=== PATIENT | male | born 1955 | race Caucasian/White ===

== ENCOUNTER 2017-05-12 08:44 | Outpatient (CLI) | payer OTHER ==
[~2017-05-12 08:44] MED LIST: Gadobenate Dimeglumine 529 MG/1 ML (20ML VIAL) ONE
--- NOTE | 2017-05-12 12:39 | RAD ---
RIGHT SHOULDER ATHROGRAM: History: 63-year-old male with right shoulder pain status post surgery with clinical concern for adhesive cap sulitis. Fluoroscopy time: 4 minutes, 78.60 mGy2. FINDINGS: Heat Plant Specialist views demonstrate removal of the distal clavicle and AC joint. Following informed consent the right shoulder was prepped and draped in usual sterile fashion. Local anesthesia was obtained with 1% Xylocaine. 22 gauge spinal needle was introduced into the anterior superior glenohumeral joint. Contrast media was injected and spot films confirm intraarticular locat ion. There was some extraarticular contrast injected resulting in a partially mixed injection. Patient tolerated the procedure well and was moved to MRI for post arthrogram MRI to follow. IMPRESSION: Post-surgical changes with removal of the distal right clavicle. Partially mixed injection. No evide nce for contrast extension into the subacromial or subdeltoid bursa as demonstrated on these limited spot films. Patient was moved to MRI for post arthrogram MRI to follow. POS: [facility]
[2017-05-12] MEDS ORDERED: EPINEPHrine 1 MG/ML AMP ONE (14:42)
[2017-05-12] MEDS ORDERED: Sodium Chloride 0.9% (PF) 10 ML VIAL ONE (14:42)
[2017-05-12] MEDS ORDERED: Lidocaine 1% PF 5 ML VIAL ONE (14:42)
[2017-05-12] MEDS ORDERED: Iopamidol 300 61% 30 ML VIAL ONE (14:42)
[2017-05-12] MEDS ORDERED: Gadobenate Dimeglumine 529 MG/1 ML (20ML VIAL) ONE (14:45)
--- NOTE | 2017-05-12 14:56 | MRI ---
RIGHT SHOULDER MRI POST RIGHT SHOULDER ARTHROGRAM: History: 63-year-old male with right shoulder pain following right shoulder surgery this summer. Technique: Multiplanar, multisequence MRI examination is performed. There is some moderate motion artifact whic h definitely lowers the sensitivity of this study. There are very extensive post-operative changes i nvolving the rotator cuff including prominent acromioplasty changes with some removal of the AC join t and distal clavicle. There is extensive metal susceptibility artifact. Multiple internal fixation anchors stabilize the greater the tuberosity. There was a partial mixed injection at the time of the shoulder arthrogram with some contrast media intending beyond the confines of the glenohumeral joint with some back filling along the course of t he needle into the subscapularis myotendinous region as well as the anterior deltoid muscle. In ailyn tion, there was some poor mixing of the gadolinium and iodinated contrast within the glenohumeral jose de jesus int as well as the subcoracoid recess. There appears to be a complete full thickness retracted tear of the supraspinatus tendon with retraction back to near the level of the humeral dome with the supr aspinatus muscle showing moderate to severe muscle volume loss. There is a partial thickness undersurface and minimally delaminating tear of the infraspinatus tendo n and probable small undersurface and delaminating tear of the subscapularis tendon. The biceps tend on has a somewhat bifid or split type appearance with some abnormal signal extending into the intera rticular portion of the biceps tendon and to the level of the biceps anchor. No acute osteochondral defect of the humerus or glenoid. Lesser tuberosity subchondral cyst. IMPRESSION: 1. Full thickness retracted tear of the supraspinatus tendon with some associated supraspinatus musc le volume loss. Partial thickness undersurface delaminating tear of the infraspinatus tendon and sub scapularis tendon. Somewhat split type or bifid type appearance of the biceps tendon in the upper bi cipital grove and intraarticularly with some abnormal high signal extending into the biceps anchor c oncerning for an interstitial biceps tendon tear extending into the biceps tendon. Extensive post-op erative changes. Lesser tuberosity subchondral cyst. POS: [facility]
== END 2017-05-12 08:45 | disposition home or self-care (01) ==
LOC: EDBD 08:44 → RAD 08:44
PROVIDERS: ATTEND Orthopaedic Surgery
DX: M75.01 Adhesive capsulitis of right shoulder (principal); Z98.890 Other specified postprocedural states
CPT/HCPCS: 23350; A9579; J0171; J2001; J7050

== ENCOUNTER 2019-05-30 08:41 | Inpatient (IN) | payer OTHER ==
[2019-05-30] MEDS ORDERED: Morphine 2 MG/ML SYRINGE ONE (08:54)
[2019-05-30] MEDS ORDERED: Aggrastat 12.5 MG/250 ML 250 ML ONE (08:58)
[2019-05-30] MEDS ORDERED: Heparin 10,000 UNITS/1 ML VIAL ONE (09:01)
[2019-05-30] MEDS ORDERED: DOPamine 400 MG/D5W 250 ML 250 ML ONE (09:14)
[2019-05-30] MEDS ORDERED: EPINEPHrine 1 MG/10 ML Abboject SYRINGE ONE (09:17)
[2019-05-30] MEDS ORDERED: EPINEPHrine 1 MG/ML AMP ONE (09:17)
[2019-05-30] MEDS ORDERED: Ondansetron PF 4 MG/2 ML Vial ONE (09:46)
[2019-05-30] MEDS ORDERED: Norepinephrine 4 MG/4 ML VIAL ONE ×2 (09:47→10:04)
[2019-05-30] MEDS ORDERED: Milk Of Magnesia 30 ML UDCUP PO PRN (11:14)
[2019-05-30] MEDS ORDERED: Zolpidem Tartrate 5 MG TAB PO PRN (11:14)
[2019-05-30] MEDS ORDERED: Acetaminophen/Codeine 30-300mg Tablet PO PRN (11:14)
[2019-05-30] MEDS ORDERED: Aggrastat 12.5 MG/250 ML 12.5 MG in Premix Bag 1 BAG IVPB SCH (11:14)
[2019-05-30] MEDS ORDERED: TICAGRELOR 90 MG TABLET PO SCH (11:14)
[2019-05-30] MEDS ORDERED: Morphine 2 MG/ML SYRINGE SLOW IVP PRN (11:18)
[2019-05-30 11:59] LABS: #Basophils 0.1 thou/uL (0.0-0.2); #Lymphocytes 1.3 thou/uL (1.20-3.40); #Monocytes 0.5 thou/uL (0.11-0.59); #Neutrophils 15.8 thou/uL (1.40-6.50); %Basophils 0.3 % (0.0-1.0); %Eosinophils 0.2 % (0.0-10.0); %Lymphocytes 7.2 % (21.0-51.0); %Monocytes 3.1 % (0.0-10.0); %Neutrophils 89.3 % (42.0-75.0); Hemoglobin 14.5 g/dL (14.0-18.0); Mean Corpuscular HGB CONC 32.8 g/dL (32.0-36.0); Mean Corpuscular Hemoglobin 32.1 pg (27.0-31.0); Mean Corpuscular Volume 98.1 fL (78.0-98.0); Mean Platelet Volume 8.2 fL (7.4-10.4); Platelet Count 166 thou/uL (130-400); Red Blood Cell (RBC) Count 4.52 mill/uL (4.70-6.10); White Blood Cell (WBC) Count 17.7 thou/uL (4.8-10.8)
--- NOTE | 2019-05-30 12:12 | CON ---
DATE OF CONSULTATION: HISTORY OF PRESENT ILLNESS: Noam Amador is a 64-year-old gentleman, who came to the ER this morning with chest pain, taken to the clinical lab assistant by Dr. Mosher. Please review Dr. Mosher' note. He had an acute anterior myocardial infarction. A bare metal stent was placed in his LAD. His blood pressure is low. He has an intra-aortic balloon pump placed at 1:1. In the ICU, he is at this stage relatively asymptomatic, pulse is 65, blood pressure is 118/47, on Levophed and intra-aortic balloon pump. The patient has known history of coronary artery disease. He states he normally seeks care at [facility]. Smokes a pack a day. No prior history of TB, pneumonia, or bronchial asthma. PAST MEDICAL HISTORY: Arthritis, mainly previous issues being addressed at the [facility]. Past medical history otherwise pertinent for hypertension. No history of diabetes. PAST SURGICAL HISTORY: Bilateral shoulder and back surgery. HOME MEDICATIONS: Apparently, has a list of the medication. ALLERGIES: NONE. 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 PHYSICAL EXAMINATION: VITAL SIGNS: Pulse 87, blood pressure 117/44, respirations 18, saturations 95%. CHEST: No wheezing or crackles. CARDIAC: Normal S1, S2. No gallop. ABDOMEN: No mass. IMPRESSION: Acute myocardial infarction, most recent cardiac cath with intra-aortic balloon pump secondary to hypertension, single bare metal stent. PLAN: Pulmonary Critical Care will follow in the ICU. Continue supportive care and PT. Baseline lab, x-ray being ordered. TIME SPENT: Consultation note, 70 minutes, 50% in direct patient care. Job ID: [id number]
[2019-05-30] MEDS: Norepinephrine 8 MG in Dextrose 5% in Water 242 ML IVPB PRN (12:16)
[2019-05-30 12:20] LABS: Troponin I 34.071 ng/mL (< 0.028)
--- NOTE | 2019-05-30 12:58 | RAD ---
PORTABLE CHEST: HISTORY: Chest pain. COMPARISON: Study from 04/01/2006. FINDINGS: Heart size is within normal limits. There is mild vascular engorgement. There are increased perihilar markings with slightly more confluent change within the right upper lobe. This could represent asymm etric edema versus infiltrate. IMPRESSION: Asymmetric right-sided perihilar and upper lobe interstitial alveolar lung change. This could represe nt an asymmetric pulmonary edema pattern versus pneumonia. A follow-up chest film would be suggested . POS: [facility]
--- NOTE | 2019-05-30 13:21 | HP ---
INDICATION FOR ADMISSION: A 64-year-old patient, who started suffering an acute anterior myocardial ST-segment elevation this morning. He was at home apparently, was getting ready for work and started to notice he had some pain. He thought when he had some chest discomfort, it was indigestion. He took some antacids, did not help, and 911 was called. He was brought to the emergency room. On the way in with the ambulance, he was noted to have an EKG and acute anterior myocardial infarction, and also he was given, I believe, morphine as well as given 4000 units of heparin. When he arrived here, he was taken immediately to the cardiac feed mill lab technician. He was still continued to have significant chest pain 8 to 05/02. He does have a history in the past of coronary artery disease. He was seen in 2005 by me, was complaining of some chest discomfort. He had a very small vessel in the distal right coronary artery, which is occluded, which was too small to intervene upon. He also had some 30% stenosis in the right coronary artery. He also had some 50% to 60% stenosis in the left anterior descending artery, but did not feel that it was necessary to undergo any intervention at that time. The circumflex was free of any significant flow-limiting disease. He believes he has not been followed up. He has been noncompliant apparently with his medications and followups. He continues to smoke. At this time, he was taken immediately to the cardiac feed mill lab technician. Very little history was obtained from the patient due to this intense pain. No family members were available. Further dictation will follow if indicated. At this time, he has suffered an anterior myocardial infarction. PAST MEDICAL HISTORY: Significant for coronary artery disease, which is documented by previous cardiac catheterization in 2005. He also has history of back surgery in 1990. He has had rotator cuff problems. SOCIAL HISTORY: He is . He had two biological children, five adopted children. He continues to smoke. At least, he has been smoking for more than 45 years. He was drinking a six pack of beer the last time he was seen. He continues to drink. 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 FAMILY HISTORY: Noncontributory. MEDICATIONS: These will need to be dictated later. I am unclear of what medicines he was supposed to be taking. REVIEW OF SYSTEMS: Also, he mainly just complained about his onset of the pain today. PHYSICAL EXAMINATION: GENERAL: Revealed a well-developed, well-nourished gentleman. He is in significant distress. VITAL SIGNS: The blood pressure is in the 80s to 90s systolically. HEENT: Unremarkable. CHEST: Clear anteriorly. CARDIOVASCULAR: Revealed a regular rate and rhythm with occasional ectopy. ABDOMEN: Unremarkable. EXTREMITIES: Showed no clubbing or cyanosis. Pedal pulses are difficult to palpate, but femoral pulses are present. NEUROLOGICAL: Neurologically, he appeared to be grossly intact. IMAGING STUDIES: EKG showed an acute anterior myocardial infarction. LABORATORY DATA: Still pending. The patient was taken emergently to the cardiac feed mill lab technician. Further dictation will follow based on the outcomes of the patient. Job ID: [id number]
--- NOTE | 2019-05-30 13:59 | CON ---
DATE OF CONSULTATION: REASON FOR ADMISSION: Anterior wall STEMI. HISTORY OF PRESENTING ILLNESS: The patient gives history of being at work and feeling very hot. He took his shirt and his hat off, but still he was feeling hot. Then he started to feel numb in his fingertips and developed retrosternal chest pain. This happened around 7:30 in the morning. He drove home and took a tablet of aspirin and a heartburn pill. He laid down for a few minutes, but could not get up after that. The finally called EMS around 10 a.m. and he was brought here. The patient's initial EKG showed ST elevation CA in the anterior wall and was taken to cardiac catheterization and has had stent placed to LAD. Currently, does not complain of any chest pain or shortness of breath. He has no complaints of cough or expectoration at present. PAST MEDICAL AND SURGICAL HISTORY: The patient mentions that he has had prior history of CA with no intervention done. History of CVA with left hemiparesis completely resolved with the patient doing a lot of physical therapy at home. There is no residual weakness at present, dyslipidemia, history of benign prostatic hypertrophy, back surgery, bilateral shoulder surgery, right reverse shoulder arthroplasty. CURRENT MEDICATIONS: 1. Flomax 0.4 mg p.o. daily. 2. Finasteride 5 mg p.o. daily. 3. Aspirin 81 mg daily. 4. Multivitamin one tablet once daily. ALLERGIES: NO KNOWN DRUG ALLERGIES. PERSONAL HISTORY: Smokes 1 pack a day. Drinks on social occasions. Does not abuse drugs. 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 Lives with his . FAMILY HISTORY: Mother in her 80s from natural causes. Father is living and has history of bladder cancer. REVIEW OF SYSTEMS: CONSTITUTIONAL: Negative for weight loss or gain, ability to conduct usual activities. SKIN: Negative for rash, itching. EYES: Negative for double vision, pain. ENT/MOUTH: Negative for nose bleeding, neck stiffness, pain, tenderness. CARDIOVASCULAR: Negative for palpitations, dyspnea on exertion, orthopnea. RESPIRATORY: Negative for shortness of breath, wheezing, cough, hemoptysis, fever or night sweats. GASTROINTESTINAL: Negative for poor appetite, abdominal pain, heartburn, nausea , vomiting, constipation, or diarrhea. GENITOURINARY: Negative for urgency, frequency, dysuria, nocturia. MUSCULOSKELETAL: Negative for pain, swelling. NEUROLOGIC/PSYCHIATRIC: Negative for anxiety, depression. ALLERGY/IMMUNOLOGIC: Negative for skin rash, bleeding tendency. CODE STATUS: Full. Power of corporate associate attorney is his . PHYSICAL EXAMINATION: GENERAL: The patient is a 64-year-old male, who is currently not in any acute distress. VITAL SIGNS: Blood pressure 110/60, art line shows systolic pressures of 90, pulse 74 per minute, respiratory rate 20 per minute, saturating 95% on 2 L nasal cannula, temperature is 97.1 degrees Fahrenheit. NECK: Supple. No elevated JVD. HEENT: Eyes; extraocular muscles intact. Pupils reacting to light. Oral cavity, mucous membranes are dry. No exudates or congestion. CARDIOVASCULAR SYSTEM: S1 and S2 heard. Murmur plus likely due to IABP. RESPIRATORY SYSTEM: Air entry 1+ bilateral. Scattered rales plus in the infra-axillary area. ABDOMEN: Soft, bowel sounds heard. No tenderness, rigidity, or guarding. EXTREMITIES: The patient has left femoral IABP catheter. Peripheral pulses are 1+ bilateral. No ischemic ulcerations or gangrene. CENTRAL NERVOUS SYSTEM: No gross focal deficits noted. The patient is alert, awake, and oriented well. PSYCHIATRIC SYSTEM: The patient's mood is euthymic. No hallucinations or delusions. LABORATORY DATA: EKG done shows anterior wall ST-elevation CA. White count of 17, hemoglobin and hematocrit of 14 and 44, platelet count 166 with 89% neutrophils. Troponin I is 34.07. CLINICAL IMPRESSION AND PLAN: The patient has had cardiac catheterization done for anterior wall STEMI with bare metal stent placed to LAD. He had subtotal occlusion of the same. Mid RCA had 50% to 60%. His current systolic blood pressure on IABP with art line is maintaining a MAP of around 70. He is on a small dose of Coreg , Lipitor, tirofiban drip, normal saline at 70 mL per hour. The patient received 180 mg of Brilinta around 1 p.m. and will start 90 b.i.d. from evening. Morphine p.r.n. for pain. Low dose of lisinopril. Echo with 2D Doppler for LV function and will closely follow up. He is currently on clear liquid diet, likely will be advanced to solid diet once he is off IABP. Levophed drip is on standby if he were to drop his pressure. He likely needs 1 or 2 doses of diuretics when his blood pressure stabilizes. Job ID: [id number] MTDD
[2019-05-30] MEDS ORDERED: Iopamidol 370 76% 100 ML VIAL ONE (14:35)
[2019-05-30] MEDS ORDERED: Iopamidol 370 76% 50 ML VIAL FS ONE (14:35)
[2019-05-30 15:17] LABS: ALT (SGPT) 40 U/L (8-55); AST (SGOT) 147 U/L (5-34); Albumin 3.4 g/dL (3.4-4.8); Alkaline Phosphatase 71 U/L (40-110); Anion Gap 14 mmol/L (10-20); BUN (Urea Nitrogen) 14 mg/dL (8.4-25.7); Bilirubin, Total 0.5 mg/dL (0.2-1.2); Calc. Creatinine Clearance 107 mL/min (70-130); Calcium 7.7 mg/dL (7.8-10.44); Carbon Dioxide 19 mmol/L (23-31); Chloride 108 mmol/L (98-107); Estimated GFR-MDRD Greater than 90; Globulin 2.8 g/dL (2.4-3.5); Glucose 158 mg/dL (80-115); Protein, Total 6.2 g/dL (5.8-8.1); Sodium 137 mmol/L (136-145)
[2019-05-30 19:01] LABS: CKMB 538.7 ng/mL (0-6.6)
[2019-05-30] MEDS: Atorvastatin Calcium 40 MG TAB PO SCH (20:07)
[2019-05-30] MEDS: Carvedilol 3.125 MG TAB PO SCH (20:10)
[2019-05-30] MEDS: TICAGRELOR 90 MG TABLET PO SCH (20:15)
[2019-05-30] MEDS: Acetaminophen/Codeine 30-300mg Tablet PO PRN (20:16)
[2019-05-30] MEDS: Morphine 4 MG/ML VIAL SLOW IVP PRN (20:52)
[2019-05-31 00:47] LABS: Critical Call Chem Troponin I RESULT DECREASING
[2019-05-31] MEDS: Acetaminophen/Codeine 30-300mg Tablet PO PRN ×2 (00:53→17:34)
[2019-05-31 01:13] LABS: CKMB 256.5 ng/mL (0-6.6); Critical Call CKMB RESULT DECREASING
[2019-05-31] MEDS: Norepinephrine 8 MG in Dextrose 5% in Water 242 ML IVPB PRN ×2 (01:40→21:55)
[2019-05-31] MEDS: Morphine 4 MG/ML VIAL SLOW IVP PRN ×2 (02:34→07:56)
[2019-05-31 05:43] LABS: #Basophils 0.1 thou/uL (0.0-0.2); #Lymphocytes 3.1 thou/uL (1.20-3.40); #Monocytes 1.3 thou/uL (0.11-0.59); #Neutrophils 9.4 thou/uL (1.40-6.50); %Basophils 0.5 % (0.0-1.0); %Eosinophils 0.3 % (0.0-10.0); %Lymphocytes 22.5 % (21.0-51.0); %Monocytes 9.4 % (0.0-10.0); %Neutrophils 67.3 % (42.0-75.0); Hemoglobin 12.6 g/dL (14.0-18.0); Mean Corpuscular HGB CONC 34.5 g/dL (32.0-36.0); Mean Corpuscular Hemoglobin 33.6 pg (27.0-31.0); Mean Corpuscular Volume 97.2 fL (78.0-98.0); Mean Platelet Volume 7.7 fL (7.4-10.4); Platelet Count 179 thou/uL (130-400); Red Blood Cell (RBC) Count 3.76 mill/uL (4.70-6.10); White Blood Cell (WBC) Count 13.9 thou/uL (4.8-10.8)
[2019-05-31 06:05] LABS: ALT (SGPT) 62 U/L (8-55); AST (SGOT) 205 U/L (5-34); Albumin 3.1 g/dL (3.4-4.8); Alkaline Phosphatase 60 U/L (40-110); Anion Gap 11 mmol/L (10-20); BUN (Urea Nitrogen) 9 mg/dL (8.4-25.7); Bilirubin, Total 0.9 mg/dL (0.2-1.2); Calc. Creatinine Clearance 109 mL/min (70-130); Calcium 8.1 mg/dL (7.8-10.44); Carbon Dioxide 22 mmol/L (23-31); Cardiac Risk 4.8 (Less than 4.5); Chloride 107 mmol/L (98-107); Cholesterol 135 mg/dl (< 200 Desired); Estimated GFR-MDRD Greater than 90; Globulin 2.5 g/dL (2.4-3.5); Glucose 134 mg/dL (80-115); HDL Cholesterol 28 mg/dL (>60 Neg Risk); LDL Cholesterol, Calculated 92 mg/dL; Potassium 3.6 mmol/L (3.5-5.1); Protein, Total 5.6 g/dL (5.8-8.1); Sodium 136 mmol/L (136-145); Triglycerides 76 mg/dL (Less than 150)
--- NOTE | 2019-05-31 07:57 | RAD ---
ONE VIEW CHEST: COMPARISON: 05/30/2019. HISTORY: IADP placement. FINDINGS: Stable density projects over the aortic knob. Stable cardiac silhouette. Persistent interstitial and alveolar opacities in the right lung. Stable interstitial opacities in t he left lung. No pleural effusion or pneumothorax. Right shoulder prosthesis is once again demonstr ated. IMPRESSION: No significant interval change. POS: [facility]
--- NOTE | 2019-05-31 08:41 | PDOC.HOSPP ---
- Subjective Encounter Date: 05/31/19 Encounter Time: 08:36 Subjective: chronic back pain aggravated by strict bed rest - Objective Vital Signs & Weight: Vital Signs (12 hours) Temp Pulse Ox 05/31/19 08:00 97.9 F 95 05/31/19 06:45 96 05/31/19 04:00 98.6 F 05/31/19 03:58 98 05/31/19 00:00 98.7 F 96 Weight Weight 179 lb 3.773 oz Most Recent Monitor Data Heart Rate from ECG 69 NIBP 87/48 NIBP BP-Mean 61 Respiration from ECG 12 SpO2 93 I&O: 05/30/19 05/31/19 06/01/19 06:59 06:59 06:59 Intake Total 1724.3 Output Total 1565 205 Balance 159.3 -205 Result Diagrams: 05/31/19 05:19 05/31/19 05:19 Hospitalist ROS - Medication Medications: Active Medications Generic Name Dose Route Start Last Admin Trade Name Freq PRN Reason Stop Dose Admin Acetaminophen/Codeine Phosphate 2 tab 05/30/19 11:14 05/31/19 00:53 Tylenol #3 PO 2 tab Q4H PRN Administration PAIN (4-6) Atorvastatin Calcium 40 mg 05/30/19 21:00 05/30/19 20:07 Lipitor PO 40 mg HS SHARIF Administration Carvedilol 3.125 mg 05/30/19 21:00 05/30/19 20:10 Coreg PO Not Given BID SHARIF Norepinephrine Bitartrate 8 mg 250 mls @ 0 mls/hr 05/30/19 10:48 05/31/19 01: 40 / Dextrose/Water IVPB 250 mls INF PRN Administration TO MAINTAIN MAP > 65 Protocol As Directed Tirofiban/Sodium Chloride 12.5 250 mls @ 0 mls/hr 05/30/19 11:14 05/30/19 12: 17 mg/ Device IVPB 250 mls INF SHARIF Administration As Directed Morphine Sulfate 4 mg 05/30/19 11:14 05/31/19 07:56 Morphine SLOW IVP 4 mg Q4H PRN Administration Chest Pain (7-10) Morphine Sulfate 2 mg 05/30/19 11:18 05/30/19 14:39 Morphine SLOW IVP 2 mg Q4H PRN Administration CHEST PAIN (4-6) Sodium Chloride 10 ml 05/30/19 21:00 05/30/19 20:15 Flush - Normal Saline IVF 10 ml Q12HR SHARIF Administration Ticagrelor 90 mg 05/30/19 21:00 05/30/19 20:15 Brilinta PO 90 mg BID SHARIF Administration - Exam Neck: no JVD Heart: RRR Heart - other findings: to\fro murmur of baloon pump Respiratory: CTAB Gastrointestinal: soft, normal bowel sounds Extremities: no edema Hosp A/P (1) ST elevation (STEMI) myocardial infarction involving left anterior descending coronary artery Code(s): I21.02 - STEMI INVOLVING LEFT ANTERIOR DESCENDING CORONARY ARTERY Status: Acute (2) CAD (coronary artery disease) Code(s): I25.10 - ATHSCL HEART DISEASE OF [place] CORONARY ARTERY W/O ANG PCTRS Status: Acute Qualifiers: Coronary Disease-Associated Artery/Lesion type: [place] artery [place] vs. transplanted heart: [place] heart Associated angina: angina presence unspecified Qualified Code(s): I25.10 - Atherosclerotic heart disease of [place] coronary artery without angina pectoris (3) Cardiomyopathy, ischemic Code(s): I25.5 - ISCHEMIC CARDIOMYOPATHY Status: Acute (4) Hypotension after procedure Code(s): I95.81 - POSTPROCEDURAL HYPOTENSION Status: Acute - Plan on baloon pump on iv levofed on brilinta bleeding at femoral puncture sites discussed with cardiology
--- NOTE | 2019-05-31 09:45 | PRG ---
DATE OF SERVICE: 05/31/2019 SUBJECTIVE: This morning, he is awake, alert, and responsive. Still on an intra-aortic balloon pump. OBJECTIVE: VITAL SIGNS: Blood pressure is 90/40, temperature is 97, saturations are 90%, respirations are 18. His I's and O's have been consistently negative. GENERAL: He is complaining of back pain. CHEST: Decreased breath sounds. No wheezing. CARDIAC: Normal S1 and S2. No gallops. ABDOMEN: No masses. LABORATORY DATA: Troponin is elevated at . IMAGING STUDIES: X-ray shows CHF. ASSESSMENT: 1. Status post acute myocardial infarction. 2. . 3. Intra-aortic balloon pump. 4. Congestive heart failure. 5. Back pain. PLAN: Pulmonary will follow while in the ICU. Continue supportive care, PT. Job ID: [id number]
[2019-05-31] MEDS ORDERED: Lidocaine 1% (PF) 30 ML VIAL ONE (10:08)
[2019-05-31] MEDS: Ondansetron ODT 4 MG TAB PO PRN (10:59)
[2019-05-31] MEDS: Aspirin 81 mg Enteric Coated Tablet PO SCH (10:59)
[2019-05-31] MEDS: TICAGRELOR 90 MG TABLET PO SCH ×2 (11:00→21:54)
[2019-05-31] MEDS: Carvedilol 3.125 MG TAB PO SCH ×2 (11:00→20:48)
[2019-05-31] MEDS: Finasteride 5 MG TAB PO SCH (11:00)
[2019-05-31] MEDS: Lisinopril 2.5 MG TAB PO SCH (11:05)
--- NOTE | 2019-05-31 13:27 | PDOC.CPN ---
- Subjective Date: 05/31/19 Time: 08:30 Interval history: The Pt seen and examined. No overnight events. No cardiac complaints. - Objective Allergies/Adverse Reactions: Allergies Allergy/AdvReac Type Severity Reaction Status Date / Time No Known Allergies Allergy Unverified 05/30/19 10:50 Visit Medications: Current Medications Acetaminophen/Codeine Phosphate (Tylenol #3) 1 tab PO Q4H PRN PRN Reason: PAIN (1-3) Acetaminophen/Codeine Phosphate (Tylenol #3) 2 tab PO Q4H PRN PRN Reason: PAIN (4-6) Last Admin: 05/31/19 00:53 Dose: 2 tab Aspirin (Ecotrin) 81 mg PO DAILY [facility] Last Admin: 05/31/19 10:59 Dose: 81 mg Atorvastatin Calcium (Lipitor) 40 mg PO HS [facility] Last Admin: 05/30/19 20:07 Dose: 40 mg Carvedilol (Coreg) 3.125 mg PO BID [facility] Last Admin: 05/31/19 11:00 Dose: Not Given Cyclobenzaprine HCl (Flexeril) 10 mg PO TID PRN PRN Reason: Muscle Spasm Finasteride (Proscar) 5 mg PO DAILY [facility] Last Admin: 05/31/19 11:00 Dose: 5 mg Norepinephrine Bitartrate 8 mg (/ Dextrose/Water) 250 mls @ 0 mls/hr IVPB INF PRN; Protocol PRN Reason: TO MAINTAIN MAP > 65 Last Admin: 05/31/19 01:40 Dose: 250 mls Tirofiban/Sodium Chloride 12.5 (mg/ Device) 250 mls @ 0 mls/hr IVPB INF [facility] Last Admin: 05/30/19 12:17 Dose: 250 mls Lisinopril (Zestril) 2.5 mg PO DAILY [facility] Last Admin: 05/31/19 11:05 Dose: Not Given Magnesium Hydroxide (Milk Of Magnesium) 30 ml PO Q12H PRN PRN Reason: Constipation Morphine Sulfate (Morphine) 4 mg SLOW IVP Q4H PRN PRN Reason: Chest Pain (7-10) Last Admin: 05/31/19 07:56 Dose: 4 mg Morphine Sulfate (Morphine) 2 mg SLOW IVP Q4H PRN PRN Reason: CHEST PAIN (4-6) Last Admin: 05/30/19 14:39 Dose: 2 mg Ondansetron HCl (Zofran Odt) 4 mg PO Q6H PRN PRN Reason: Nausea/Vomiting Last Admin: 05/31/19 10:59 Dose: 4 mg Sodium Chloride (Flush - Normal Saline) 10 ml IVF PRN PRN PRN Reason: Saline Flush Sodium Chloride (Flush - Normal Saline) 10 ml IVF Q12HR [facility] Last Admin: 05/31/19 11:00 Dose: 10 ml Ticagrelor (Brilinta) 90 mg PO BID [facility] Last Admin: 05/31/19 11:00 Dose: 90 mg Zolpidem Tartrate (Ambien) 5 mg PO HS PRN PRN Reason: Insomnia Vital Signs & Weight: Vital Signs Temp Pulse Pulse Ox 05/31/19 11:05 80 05/31/19 08:00 97.9 F 95 05/31/19 06:45 96 05/31/19 04:00 98.6 F 05/31/19 03:58 98 Weight 179 lb 3.773 oz - Physical Exam General: alert & oriented x3 Neck: supple neck Cardiac: regular rate and rhythm, S1/S2 Lungs: decreased breath sounds Extremities: no cyanosis Skin: clear Musculoskeletal: decreased range of motion - Labs Result Diagrams: 05/31/19 05:19 05/31/19 05:19 Troponin/CKMB CK-MB (CK-2) 256.5 ng/mL (0-6.6) H* 05/30/19 23:50 Troponin I 140.033 ng/mL (< 0.028) H* 05/30/19 23:50 - Telemetry Sinus rhythms and dysrhythmias: sinus rhythm - Assessment/Plan Assessment/Plan: 1. CAD with s/p PCI with BMS in prox LAD,large anterior TN. 50% stenosis in mid RCA - with IABP; On BBlocker, SHENG, Statin, ASA, and Brilinta; oozing from IABP and central line site. 2. Acute on Chronic Systolic HF with EF 25-30% - on IABP; On BBlocker and SHENG; 3. Ischemic CMY 4. Hx of CVA 5. HLD - On Statin 6. Elevated LFT 7. ETOH and Tobacco abuse - strongly recommend MICHOACANO and Tobacco cessation. 8. Hypotension - on Levophed and IABP. MAR reviewed Pt. seen and eval. by me. i agree with the A/P by the GROUP PROGRAM MANAGER. unable to wean from the levophed and the aortic balloon pump yet. He complains of back pain but no chest pain. Continue aggressive care.
[2019-05-31] MEDS: Cyclobenzaprine 10 MG TAB PO PRN (17:34)
[2019-05-31] MEDS: Atorvastatin Calcium 40 MG TAB PO SCH (21:53)
[2019-06-01] MEDS: Acetaminophen/Codeine 30-300mg Tablet PO PRN ×4 (01:15→18:04)
[2019-06-01] MEDS: Cyclobenzaprine 10 MG TAB PO PRN ×3 (01:50→21:05)
[2019-06-01 09:24] LABS: Anion Gap 9 mmol/L (10-20); BUN (Urea Nitrogen) 6 mg/dL (8.4-25.7); Calc. Creatinine Clearance 119 mL/min (70-130); Calcium 8.1 mg/dL (7.8-10.44); Carbon Dioxide 25 mmol/L (23-31); Chloride 106 mmol/L (98-107); Estimated GFR-MDRD Greater than 90; Glucose 124 mg/dL (80-115); Potassium 3.6 mmol/L (3.5-5.1); Sodium 136 mmol/L (136-145)
[2019-06-01] MEDS: Aspirin 81 mg Enteric Coated Tablet PO SCH (09:26)
[2019-06-01] MEDS: Lisinopril 2.5 MG TAB PO SCH (09:26)
[2019-06-01] MEDS: Finasteride 5 MG TAB PO SCH (09:26)
[2019-06-01] MEDS: TICAGRELOR 90 MG TABLET PO SCH ×2 (09:27→21:05)
--- NOTE | 2019-06-01 09:29 | PRG ---
DATE OF SERVICE: 06/01/2019 SUBJECTIVE: This morning, he is awake, responsive. His balloon pump is being decreased 1:3. Denies any pain. No shortness of breath. OBJECTIVE: VITAL SIGNS: Blood pressure is 95/51, saturations are 99%, and respirations 18. CHEST: No wheezing or crackles. CARDIAC: Normal S1 and S2. No gallops. ABDOMEN: No masses. ASSESSMENT: 1. Cardiomyopathy. 2. Congestive heart failure. PLAN: Continue pressors per Cardiology. Pulmonary will follow while in the ICU. Job ID: [id number]
[2019-06-01] MEDS: Enoxaparin Sodium 30 MG/0.3 ML SYRINGE SC SCH ×2 (10:00→21:05)
[2019-06-01] MEDS: Carvedilol 3.125 MG TAB PO SCH ×2 (11:13→21:06)
--- NOTE | 2019-06-01 11:27 | PDOC.HOSPP ---
- Subjective Encounter Date: 06/01/19 Encounter Time: 11:26 Subjective: no chest pain or sob - Objective Vital Signs & Weight: Vital Signs (12 hours) Temp Pulse Ox 06/01/19 11:00 98.1 F 06/01/19 07:07 96 06/01/19 07:00 98.2 F 06/01/19 05:00 98.8 F Weight Weight 179 lb 3.773 oz Most Recent Monitor Data Heart Rate from ECG 75 NIBP 94/59 NIBP BP-Mean 70 Respiration from ECG 24 SpO2 96 I&O: 05/31/19 06/01/19 06/02/19 06:59 06:59 06:59 Intake Total 1724.3 1393 360 Output Total 1565 2920 675 Balance 159.3 -1527 -315 Result Diagrams: 05/31/19 05:19 06/01/19 08:51 Hospitalist ROS - Medication Medications: Active Medications Generic Name Dose Route Start Last Admin Trade Name Freq PRN Reason Stop Dose Admin Acetaminophen/Codeine Phosphate 2 tab 05/30/19 11:14 06/01/19 06:25 Tylenol #3 PO 2 tab Q4H PRN Administration PAIN (4-6) Aspirin 81 mg 05/31/19 09:00 06/01/19 09:26 Ecotrin PO 81 mg DAILY SHARIF Administration Atorvastatin Calcium 40 mg 05/30/19 21:00 05/31/19 21:53 Lipitor PO 40 mg HS SHARIF Administration Carvedilol 3.125 mg 05/30/19 21:00 06/01/19 11:13 Coreg PO Not Given BID SHARIF Cyclobenzaprine HCl 10 mg 05/31/19 08:35 06/01/19 09:26 Flexeril PO 10 mg TID PRN Administration Muscle Spasm Enoxaparin Sodium 30 mg 06/01/19 09:00 06/01/19 10:00 Lovenox SC 30 mg 0900,2100 SHARIF Administration Finasteride 5 mg 05/31/19 09:00 06/01/19 09:26 Proscar PO 5 mg DAILY SHARIF Administration Norepinephrine Bitartrate 8 mg 250 mls @ 0 mls/hr 05/30/19 10:48 05/31/19 21: 55 / Dextrose/Water IVPB 250 mls INF PRN Administration TO MAINTAIN MAP > 65 Protocol As Directed Lisinopril 2.5 mg 05/31/19 09:00 06/01/19 09:26 Zestril PO 2.5 mg DAILY SHARIF Administration Morphine Sulfate 4 mg 05/30/19 11:14 05/31/19 07:56 Morphine SLOW IVP 4 mg Q4H PRN Administration Chest Pain (7-10) Morphine Sulfate 2 mg 05/30/19 11:18 05/30/19 14:39 Morphine SLOW IVP 2 mg Q4H PRN Administration CHEST PAIN (4-6) Ondansetron HCl 4 mg 05/31/19 09:42 05/31/19 10:59 Zofran Odt PO 4 mg Q6H PRN Administration Nausea/Vomiting Sodium Chloride 10 ml 05/30/19 21:00 06/01/19 09:27 Flush - Normal Saline IVF 10 ml Q12HR SHARIF Administration Ticagrelor 90 mg 05/30/19 21:00 06/01/19 09:27 Brilinta PO 90 mg BID SHARIF Administration - Exam General Appearance: awake alert Neck: no JVD Heart: RRR, no murmur Respiratory: CTAB Gastrointestinal: soft, normal bowel sounds Extremities: no edema Hosp A/P (1) ST elevation (STEMI) myocardial infarction involving left anterior descending coronary artery Code(s): I21.02 - STEMI INVOLVING LEFT ANTERIOR DESCENDING CORONARY ARTERY Status: Acute (2) CAD (coronary artery disease) Code(s): I25.10 - ATHSCL HEART DISEASE OF [place] CORONARY ARTERY W/O ANG PCTRS Status: Acute Qualifiers: Coronary Disease-Associated Artery/Lesion type: [place] artery [place] vs. transplanted heart: [place] heart Associated angina: angina presence unspecified Qualified Code(s): I25.10 - Atherosclerotic heart disease of [place] coronary artery without angina pectoris (3) Cardiomyopathy, ischemic Code(s): I25.5 - ISCHEMIC CARDIOMYOPATHY Status: Acute (4) Hypotension after procedure Code(s): I95.81 - POSTPROCEDURAL HYPOTENSION Status: Acute - Plan on baloon pump on iv levofed for BP support on brilinta discussed with cardiology
[2019-06-01] MEDS: Atorvastatin Calcium 40 MG TAB PO SCH (21:05)
--- NOTE | 2019-06-01 23:13 | EKG ---
Test Reason : S/P CATH Blood Pressure : / mmHG Vent. Rate : 085 BPM Atrial Rate : 085 BPM P-R Int : 150 ms QRS Dur : 084 ms QT Int : 356 ms P-R-T Axes : 066 099 067 degrees QTc Int : 423 ms Normal sinus rhythm Anterolateral infarct , age undetermined Abnormal ECG When compared with ECG of 02-APR-2006 10:18, QRS voltage has decreased Anterior infarct is now Present Anterolateral infarct is now Present ST no longer elevated in Inferior leads ST elevation now present in Anterior leads Confirmed by Sena SIMON ([id number]) on 06/01/2019 11:13:19 PM Referred By: AURORA Confirmed By:Sena SIMON
[2019-06-02 04:48] LABS: ALT (SGPT) 29 U/L (8-55); AST (SGOT) 47 U/L (5-34); Alkaline Phosphatase 61 U/L (40-110); Bilirubin, Direct 0.5 mg/dL (0.1-0.3); Bilirubin, Total 1.1 mg/dL (0.2-1.2); Protein, Total 5.8 g/dL (5.8-8.1)
[2019-06-02 04:51] LABS: Hemoglobin 10.9 g/dL (14.0-18.0); Mean Corpuscular HGB CONC 35.2 g/dL (32.0-36.0); Mean Corpuscular Hemoglobin 33.8 pg (27.0-31.0); Mean Corpuscular Volume 96.1 fL (78.0-98.0); Mean Platelet Volume 8.2 fL (7.4-10.4); Platelet Count 155 thou/uL (130-400); RBC Distribution Width 12.4 % (11.5-14.5); Red Blood Cell (RBC) Count 3.24 mill/uL (4.70-6.10); White Blood Cell (WBC) Count 11.5 thou/uL (4.8-10.8)
[2019-06-02] MEDS ORDERED: Albumin 25% 25 GM/100 ML BOT IVPB SCH (08:56)
--- NOTE | 2019-06-02 09:29 | PRG ---
DATE OF SERVICE: 06/02/2019 SUBJECTIVE: This morning, he is having back pain, but no shortness of breath. OBJECTIVE: VITAL SIGNS: Saturations are 98% on room air, blood pressure is 97/57. He is off the intra-aortic balloon pump. I's and O's have been negative. Respirations 18, pulse 80. CHEST: No wheezing or crackles. CARDIAC: Normal S1 and S2. No gallops. ABDOMEN: No masses. LABORATORY DATA: His bicarb is 25, BUN and creatinine are normal. ASSESSMENT: 1. Cardiomyopathy. 2. Myocardial infarction. 3. Congestive heart failure. 4. Hypertension, on Levophed. PLAN: Low-dose albumin is infused. So, we can get him off his Levophed. Otherwise, PT, supportive care. Disposition as per Cardiology. Job ID: [id number]
[2019-06-02] MEDS: Enoxaparin Sodium 30 MG/0.3 ML SYRINGE SC SCH ×2 (09:41→20:40)
[2019-06-02] MEDS: Aspirin 81 mg Enteric Coated Tablet PO SCH (09:41)
[2019-06-02] MEDS: Carvedilol 3.125 MG TAB PO SCH ×2 (09:41→20:40)
[2019-06-02] MEDS: Lisinopril 2.5 MG TAB PO SCH (09:42)
[2019-06-02] MEDS: TICAGRELOR 90 MG TABLET PO SCH ×2 (09:42→20:40)
[2019-06-02] MEDS: Sodium Chloride 0.9% 250 ML IV SCH ×5 (12:04→15:30)
--- NOTE | 2019-06-02 12:35 | CON ---
DATE OF CONSULTATION: 06/02/2019 REASON FOR CONSULT: Consideration for advanced heart failure service due to late intervening ST evaluation TX resulting in probable heart failure. HISTORY OF PRESENT ILLNESS: Mr. Amador, 64-year-old male with known coronary artery disease in the past, presented with ST-elevation TX on May. 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 He felt quite tired on Wednesday, May 26, 2019. He was fatigued to the point he did not want to go to work, then on the morning of May 28, 2019 , he woke up with what he thought was heartburn. He did have severe chest pressure pain and nausea, but then he went out to the porch and sat and he felt good afterwards. On the morning of May 30, he was working at a construction site. He then developed what he thought was severe heartburn symptoms. Associated with that he was nauseated. He also felt like there was a severe chest pressure. He said it felt like a truck sitting on his chest. He drove himself home. His called 911. His presentation EKG shows sinus rhythm, but ST elevation anterior leads of V2 through V5, unfortunately, there was a large Q-wave at V2 through V5. There is also poor R-wave progression. Thus he probably had a stuttering TX that has been ongoing with the first episode at least the day before admission, he was [place] the [place] emergently. The culprit lesion was found. It was in the proximal LAD. Atherectomy was done. He then received Rebel bare metal stent 3.5 mm in diameter by 24 mm long. Mr. Amador said that he felt something different as soon as the stent was deployed. An hour later, he felt much better. He required to be on norepinephrine. A balloon pump was also needed. Over the next two days, the balloon pump was able to be weaned off on the evening of June 01, 2019. However, he continued to need norepinephrine to support the blood pressure. Attempts at titrating norepinephrine down to below 2 mcg/minute caused symptomatic hypotension. This morning, he is reclining comfortably in bed and breathing easily and is pain free. PAST MEDICAL HISTORY: 1. He had coronary artery disease with TX in 2005, but due to right coronary artery occlusion. 2. Stroke in 2005, but he did not have any residual symptoms. 3. Most likely cholesterolemia. However, he denies this. He fell of a scaffolding, had back surgery in 1990. 4. 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 SOCIAL HISTORY: He has been a smoker for over 42 years. He said he has stopped smoking with his TX. He denied alcohol use. He denied illicit drug use. He is to his over 40 years. 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 He is based at [place], [place]. FAMILY HISTORY: His father is still alive at 86. He does not know about his mother. He has a brother who of a brain cancer at age 60. ALLERGIES: NO KNOWN DRUG ALLERGIES. MEDICATIONS: Currently on record 1. Ondansetron. 2. Norepinephrine being titrated. 3. Lisinopril 2.5 mg daily. 4. Enoxaparin 30 mg subcu for DVT prophylaxis. 5. Ambien 5 mg as needed. 6. Carvedilol 3.125 mg b.i.d., but was not given. 7. Cyclobenzaprine that is Flexeril 10 mg t.i.d. as needed. 8. Atorvastatin 40 mg at bedtime. 9. Aspirin 81 mg daily. 10. Morphine as needed. 11. Ticagrelor which is a Brilinta 90 mg p.o. b.i.d. 12. Finasteride 5 mg daily. REVIEW OF SYSTEMS: GENERAL: He said he is doing well without fever, chills. HEENT: Denies any change in vision, hearing or swallowing. PULMONARY: He denies being short of breath while at rest. CARDIOVASCULAR: Please see HPI. GI: Currently denies nausea, vomiting, abdominal pain, diarrhea, or blood in the stool. : He is on a Oconnor. NEUROLOGIC: He denies any focal deficits. INTEGUMENT: There are no new skin lesions. PSYCH: He denied being depressed. PHYSICAL EXAMINATION: VITAL SIGNS: His telemetry was reviewed. It did not show any ventricular tachycardia, it only show occasional PVCs with an average heart rate between 70 and 90. His current vitals are, heart rate of 75, blood pressure 97/52 by arterial line. He is at 96% saturation on 2 L oxygen. GENERAL: He is alert and conversational, quite pleasant, without any acute distress. However, after 5 minutes of conversation, he becomes progressively more short of breath with conversation. HEENT: Show EOMI, PERRL. His oropharynx is benign, has moist mucosa without erythema or exudate. There is no lymphadenopathy. NECK: JVP is about 8 centimeters and negative hepatojugular reflex. PULMONARY: He has good air movement bilaterally, clear to auscultation bilaterally. CARDIAC: Surprisingly regular rate and rhythm. There are no concerning murmurs , gallops, or no rubs. However, his PMI seems to be little bit inferolaterally displaced at about sixth intercostal space lateral to the midclavicular line. ABDOMEN: Soft and nontender. His left groin site is without bleeding, but there is a central line and art line placed. His right groin site is without bleeding. EXTREMITIES: Lower extremities without edema. Warm. There are a palpable dorsalis pedis pulses bilaterally. LABS: White cell count 11.5, hemoglobin 10.9, slightly elevated white cell count most likely due to his TX. His sodium is 136, potassium 3.6, BUN 6, creatinine is 0.74, and total bilirubin is only 1.1, however, does have a low albumin of 3. ASSESSMENT: 1. A 64-year-old gentleman most likely resides in [place] Heart Association stage C and probably [place] Heart Association Class 3B with a combination of systolic and diastolic dysfunction. He has suffered a large anterior TX with Q waves appearing in entire anterio-lateral leads. He is doing surprisingly well. He is currently euvolemic, perhaps a little bit dry. He had a net negative of 1.5 L two days ago. Yesterday, he had negative at 1.2 L. It is also good as he was able to be weaned off the balloon pump. However, it is a concern that there seemed to be difficulty in titrating lexi norepinephrine. 2. Potential evaluation for advanced heart failure therapy also was discussed. He has excellent family support. He said his can stay with him 24/ for at least 30 days. She does not work and they have been stably for over 40 years. He is also service-connected 100% [place] so there would resources there also. It is difficult to know if his heart can recover post revascularization. However, with large Q-waves and need for norepinephrine suggest that there is a good chance that his heart will probably not recover. Thus, advanced heart failure therapy maybe needed sooner than later. RECOMMENDATIONS: 1. Please consider doing echocardiogram to document his cardiac function. 2. Please consider hold carvedilol and lisinopril for now to allow titrating off norepinephrine. 3. Consider changing from norepinephrine to dobutamine, to have less vasoconstriction and easier titrating on other medication. 4. Once patient is stable, please consider starting valsartan at 40 mg b.i.d. if he tolerates this he can go directly to [facility]. 5. Afterwards one can consider restarting carvedilol. 6. He may be a little bit dry, so please consider a 500 mL saline in gentle fashion. 7. He is a good candidate for advanced heart failure therapy. He will need to be off cigarettes and proven to be in good compliance for least six months before he can begin on transplant list. He will be an excellent candidate for LVAD as bridge to transplant, if he desire, I will be happy to facilitate that process. It has been a pleasure to see Mr. Noam Amador. Thank you for the consult. If you have any questions, please give me a call. Job ID: [id number] MTDD
--- NOTE | 2019-06-02 14:00 | PDOC.CPN ---
- Subjective Date: 06/02/19 Time: 09:00 - Review of Systems Respiratory: reports: congestion, shortness of breath Cardiovascular: reports: chest pain, edema, orthopnea Gastrointestinal: reports: nausea, abd pain Musculoskeletal: reports: pain, swelling Neurological: reports: weakness - Objective Allergies/Adverse Reactions: Allergies Allergy/AdvReac Type Severity Reaction Status Date / Time No Known Allergies Allergy Unverified 05/30/19 10:50 Visit Medications: Current Medications Acetaminophen/Codeine Phosphate (Tylenol #3) 1 tab PO Q4H PRN PRN Reason: PAIN (1-3) Acetaminophen/Codeine Phosphate (Tylenol #3) 2 tab PO Q4H PRN PRN Reason: PAIN (4-6) Last Admin: 06/01/19 18:04 Dose: 2 tab Aspirin (Ecotrin) 81 mg PO DAILY [facility] Last Admin: 06/02/19 09:41 Dose: 81 mg Atorvastatin Calcium (Lipitor) 40 mg PO HS [facility] Last Admin: 06/01/19 21:05 Dose: 40 mg Carvedilol (Coreg) 3.125 mg PO BID [facility] Last Admin: 06/02/19 09:41 Dose: Not Given Cyclobenzaprine HCl (Flexeril) 10 mg PO TID PRN PRN Reason: Muscle Spasm Last Admin: 06/01/19 21:05 Dose: 10 mg Enoxaparin Sodium (Lovenox) 30 mg SC 0900,2100 [facility] Last Admin: 06/02/19 09:41 Dose: 30 mg Norepinephrine Bitartrate 8 mg (/ Dextrose/Water) 250 mls @ 0 mls/hr IVPB INF PRN; Protocol PRN Reason: TO MAINTAIN MAP > 65 Last Admin: 05/31/19 21:55 Dose: 250 mls Sodium Chloride (Normal Saline 0.9%) 250 mls @ 999 mls/hr IV .Q16M [facility] Stop: 06/02/19 15:00 Last Admin: 06/02/19 13:39 Dose: Not Given Lisinopril (Zestril) 2.5 mg PO DAILY [facility] Last Admin: 06/02/19 09:42 Dose: Not Given Magnesium Hydroxide (Milk Of Magnesium) 30 ml PO Q12H PRN PRN Reason: Constipation Morphine Sulfate (Morphine) 4 mg SLOW IVP Q4H PRN PRN Reason: Chest Pain (7-10) Last Admin: 05/31/19 07:56 Dose: 4 mg Morphine Sulfate (Morphine) 2 mg SLOW IVP Q4H PRN PRN Reason: CHEST PAIN (4-6) Last Admin: 05/30/19 14:39 Dose: 2 mg Ondansetron HCl (Zofran Odt) 4 mg PO Q6H PRN PRN Reason: Nausea/Vomiting Last Admin: 05/31/19 10:59 Dose: 4 mg Sodium Chloride (Flush - Normal Saline) 10 ml IVF PRN PRN PRN Reason: Saline Flush Sodium Chloride (Flush - Normal Saline) 10 ml IVF Q12HR SHARIF Last Admin: 06/02/19 09:42 Dose: 10 ml Ticagrelor (Brilinta) 90 mg PO BID SHARIF Last Admin: 06/02/19 09:42 Dose: 90 mg Zolpidem Tartrate (Ambien) 5 mg PO HS PRN PRN Reason: Insomnia Vital Signs & Weight: Vital Signs Temp Pulse Ox 06/02/19 12:00 98.5 F 06/02/19 10:17 94 L 06/02/19 07:57 94 L 06/02/19 07:00 99.3 F Weight 179 lb 3.773 oz - Quality Measures CV meds: Beta Natalya: Yes, SHENG/ARB: No (BP low. start entresto when BP stable.) , Statin: Yes, ASA: Yes - Physical Exam Neck: supple neck, no JVD/HJR Cardiac: regular rate and rhythm, S1/S2 Lungs: clear to auscultation, no wheeze, rales, rhonchi Neuro: grossly intact Abdomen: unremarkable Extremities: no cyanosis, no clubbing, no edema Skin: clear - Labs Result Diagrams: 06/02/19 03:54 06/01/19 08:51 Troponin/CKMB CK-MB (CK-2) 256.5 ng/mL (0-6.6) H* 05/30/19 23:50 Troponin I 140.033 ng/mL (< 0.028) H* 05/30/19 23:50 - Assessment/Plan Assessment/Plan: 1. CAD with s/p PCI with BMS in prox LAD,large anterior MA. 50% stenosis in mid RCA - IABP removed yesterday.; On BBlocker, Statin, ASA, and Brilinta; stable , no bleeding. 2. Acute on Chronic Systolic HF with EF 25-30% - off levophed. On BBlocker. SHENG held due to hypotension. Start ARB when BP allows. Then switch to entresto. 3. Ischemic CMY 4. Hx of CVA 5. HLD - On Statin 6. Elevated LFT 7. ETOH and Tobacco abuse - strongly recommend MICHOACANO and Tobacco cessation. 8. Hypotension - improved,stable at present. He was given albumin and NS 250ml x 2 this AM. Overall doing better than expected. Likely will need a life-vest on d/c. If EF does not improve then an AICD would be indicated. if he develops CHF symptoms then he may eventually neeed an LVAD if this can not be medically treated. alf possibility would be a transplant if he has symptomatic CHF. NICOLASA jerry
--- NOTE | 2019-06-02 14:29 | PDOC.HOSPP ---
- Subjective Encounter Date: 06/02/19 Encounter Time: 12:27 Subjective: 64 y/o male with CAD, BPH, tobacco abuse and non complaince admitted with acute STEMI. S/p cardiac cath with stent to LAD. Procedure was complicated with hypotension requiring IABP and levophed. Off IABP. Also off levophed since earlier today. Chest pain free currently - Objective Vital Signs & Weight: Vital Signs (12 hours) Temp Pulse Ox 06/02/19 12:00 98.5 F 06/02/19 10:17 94 L 06/02/19 07:57 94 L 06/02/19 07:00 99.3 F Weight Weight 179 lb 3.773 oz Most Recent Monitor Data Heart Rate from ECG 88 NIBP 95/55 NIBP BP-Mean 68 Respiration from ECG 28 SpO2 95 I&O: 06/01/19 06/02/19 06/03/19 06:59 06:59 06:59 Intake Total 1393 715.5 850 Output Total 2920 1965 190 Balance -1527 -1249.5 660 Result Diagrams: 06/02/19 03:54 06/01/19 08:51 Hospitalist ROS - Medication Medications: Active Medications Generic Name Dose Route Start Last Admin Trade Name Freq PRN Reason Stop Dose Admin Acetaminophen/Codeine Phosphate 2 tab 05/30/19 11:14 06/01/19 18:04 Tylenol #3 PO 2 tab Q4H PRN Administration PAIN (4-6) Aspirin 81 mg 05/31/19 09:00 06/02/19 09:41 Ecotrin PO 81 mg DAILY SHARIF Administration Atorvastatin Calcium 40 mg 05/30/19 21:00 06/01/19 21:05 Lipitor PO 40 mg HS SHARIF Administration Carvedilol 3.125 mg 05/30/19 21:00 06/02/19 09:41 Coreg PO Not Given BID SHARIF Cyclobenzaprine HCl 10 mg 05/31/19 08:35 06/01/19 21:05 Flexeril PO 10 mg TID PRN Administration Muscle Spasm Enoxaparin Sodium 30 mg 06/01/19 09:00 06/02/19 09:41 Lovenox SC 30 mg 0900,2100 SHARIF Administration Norepinephrine Bitartrate 8 mg 250 mls @ 0 mls/hr 05/30/19 10:48 05/31/19 21: 55 / Dextrose/Water IVPB 250 mls INF PRN Administration TO MAINTAIN MAP > 65 Protocol As Directed Sodium Chloride 250 mls @ 999 mls/hr 06/02/19 11:00 06/02/19 13:39 Normal Saline 0.9% IV 06/02/19 15:00 Not Given .Q16M SHARIF Lisinopril 2.5 mg 05/31/19 09:00 06/02/19 09:42 Zestril PO Not Given DAILY SHARIF Morphine Sulfate 4 mg 05/30/19 11:14 05/31/19 07:56 Morphine SLOW IVP 4 mg Q4H PRN Administration Chest Pain (7-10) Morphine Sulfate 2 mg 05/30/19 11:18 05/30/19 14:39 Morphine SLOW IVP 2 mg Q4H PRN Administration CHEST PAIN (4-6) Ondansetron HCl 4 mg 05/31/19 09:42 05/31/19 10:59 Zofran Odt PO 4 mg Q6H PRN Administration Nausea/Vomiting Sodium Chloride 10 ml 05/30/19 21:00 06/02/19 09:42 Flush - Normal Saline IVF 10 ml Q12HR SHARIF Administration Ticagrelor 90 mg 05/30/19 21:00 06/02/19 09:42 Brilinta PO 90 mg BID SHARIF Administration - Exam General Appearance: awake alert Eye: anicteric sclera ENT: normocephalic atraumatic, moist mucosa Neck: symmetric, no JVD Heart: RRR Respiratory: no wheezes, no rales, no ronchi, normal chest expansion Gastrointestinal: soft, non-tender, non-distended, normal bowel sounds Extremities: no edema Neurological: cranial nerve grossly intact, no focal deficits Psychiatric: normal affect, A&O x 3 Hosp A/P (1) ST elevation (STEMI) myocardial infarction involving left anterior descending coronary artery Code(s): I21.02 - STEMI INVOLVING LEFT ANTERIOR DESCENDING CORONARY ARTERY Status: Acute (2) Cardiogenic shock Code(s): R57.0 - CARDIOGENIC SHOCK Status: Acute (3) Acute on chronic systolic heart failure Code(s): I50.23 - ACUTE ON CHRONIC SYSTOLIC (CONGESTIVE) HEART FAILURE Status : Acute (4) Tobacco abuse disorder Code(s): Z72.0 - TOBACCO USE Status: Acute (5) Alcohol abuse Code(s): F10.10 - ALCOHOL ABUSE, UNCOMPLICATED Status: Acute (6) Non compliance with medical treatment Code(s): Z91.19 - PATIENT'S NONCOMPLIANCE W OTH MEDICAL TREATMENT AND REGIMEN Status: Acute (7) BPH (benign prostatic hyperplasia) Code(s): N40.0 - BENIGN PROSTATIC HYPERPLASIA WITHOUT LOWER URINRY TRACT SYMP Status: Acute (8) Cardiomyopathy, ischemic Code(s): I25.5 - ISCHEMIC CARDIOMYOPATHY Status: Acute - Plan Continue current medication. observe patient closely with discontinuation of Levophed. Other treatment as per cardiology
[2019-06-02] MEDS: Atorvastatin Calcium 40 MG TAB PO SCH (20:40)
[2019-06-03] MEDS: Lisinopril 2.5 MG TAB PO SCH (08:18)
[2019-06-03] MEDS: Carvedilol 3.125 MG TAB PO SCH (08:18)
[2019-06-03] MEDS: TICAGRELOR 90 MG TABLET PO SCH ×2 (09:00→20:59)
[2019-06-03] MEDS: Aspirin 81 mg Enteric Coated Tablet PO SCH (09:00)
[2019-06-03] MEDS: Enoxaparin Sodium 30 MG/0.3 ML SYRINGE SC SCH ×2 (09:01→20:58)
[2019-06-03] MEDS ORDERED: Finasteride 5 MG TAB PO SCH (09:15)
--- NOTE | 2019-06-03 09:21 | PRG ---
DATE OF SERVICE: 06/03/2019 SERVICE: Pulmonary Medicine. INTERVAL HISTORY: The patient is doing really well from respiratory standpoint. Breathing comfortably. He has been weaned down to room air. He has no chest discomfort, nausea, or vomiting. His blood pressures are marginal. As such, his BPH medications have not been restarted. As such, he has his Oconnor catheter in place. He says that without the Oconnor catheter in place and/or his medications, he will have a very difficult time voiding. PHYSICAL EXAMINATION: VITAL SIGNS: Afebrile; pulse 78; blood pressure 95/54; respirations 29; saturation 94%, currently on room air. GENERAL: The patient is awake and alert, in no apparent distress. LUNGS: Decent air entry with a prolonged expiratory phase. No wheezing or crackles are appreciated. HEART: Normal rate, regular. ABDOMEN: Soft, nontender, and nondistended. Bowel sounds are positive. MUSCULOSKELETAL: No cyanosis or clubbing. No pitting in bilateral lower extremities. NEUROLOGIC: Grossly nonfocal. ASSESSMENT: 1. Acute ST elevation myocardial infarction, status post percutaneous coronary intervention. 2. Chronic systolic heart failure. DISCUSSION AND PLAN: The patient remains stable for transition out of the ICU to the telemetry unit. When he arrives on the floor, we will follow intermittently. Please call with additional respiratory questions or concerns through time. Job ID: [id number]
[2019-06-03] MEDS ORDERED: Potassium Chloride 20 MEQ TAB PO SCH ×2 (09:45→12:00)
--- NOTE | 2019-06-03 10:10 | PRG ---
DATE OF SERVICE: 06/03/2019 SUBJECTIVE: Mr. Amador is doing better. He is sitting up in a chair, asymptomatic. OBJECTIVE: VITAL SIGNS: Blood pressure is 84 systolic, pulse is 70. LUNGS: Clear. CARDIAC: Normal S1, normal S2. ABDOMEN: Soft, nontender. EXTREMITIES: No edema. ASSESSMENT: 1. Status post anterior myocardial infarction, treated with emergency stent implantation. 2. Large troponin rise to 249. 3. Remains relatively hypotensive. 4. Prostatism, urinary retention. PLAN: 1. We cannot take Flomax yet due to blood pressure being low. 2. Unable to be given Coreg or lisinopril yet due to hypotension. 3. Continue aspirin and Plavix. 4. Give a single dose of potassium today as it is low. 5. If the blood pressure improves, can take Flomax, but he really cannot void without taking the Flomax after leave the Oconnor catheter in for now. Job ID: [id number]
[2019-06-03] MEDS: DOBUTamine 500 mg/250 ml 250 ML IVPB SCH (12:10)
--- NOTE | 2019-06-03 13:03 | PRG ---
DATE OF SERVICE: 06/03/2019 SUBJECTIVE: Norepinephrine was able to be titrated off on Mr. Amador. This required two boluses of normal saline at 250 mL and also albumin. He tolerated without any difficulties. However, his blood pressure has been persistently on the lowish side in the high 80s and low 90s. He also said that he needed both of his prostate medication. Without both of his prostate medication, he has incomplete voiding. He will start and stop right away. Due to his low blood pressure, his prostate medications were not able to be restarted completely. So Oconnor was left in place. Also, his blood pressure has been too low for carvedilol and lisinopril. As far as we can tell, he was not ever given carvedilol and lisinopril on this hospitalization. He does feel well. He does not complain of shortness of breath. He does not have any chest pain or palpitations. However, he has only been able to get out of bed and sit in a chair. He really did not say that he is able to walk. PHYSICAL EXAMINATION: VITAL SIGNS: Heart rate 90, blood pressure 93/66. GENERAL: He is alert, conversational, relaxed, reclining about 20 degrees. However, speaking in long sentences cause him to be short of breath. He does seem have difficulties in staying upright for long periods of time. HEENT: EOMI, PERRL. Oropharynx benign. He has moist mucosa. There is no erythema, no exudate. NECK: His JVP is now at 10 cm. Positive hepatojugular reflux. This is a new development. It is much hard than yesterday. LUNGS: Clear to auscultation bilaterally. HEART: Regular rate and rhythm. S1/S2. There is a slight 1/6 holosystolic murmur at the apex. There was radiation towards the left axilla. There are no gallops. His PMI seems to be inferolaterally displaced about the 6th intercostal space lateral to the midclavicular line. ABDOMEN: Soft, nontender. Positive bowel sounds. His lower extremities are without edema with positive dorsalis pedis pulses bilaterally. LABORATORY DATA: There are no labs today. ASSESSMENT: A 64-year-old gentleman remains in [place] Heart Association likely stage C and [place] Heart Association likely IIIB heart failure with reduced ejection fraction. This is due to large anterior myocardial infarction. Unfortunately, this [place] most likely occur in stuttering fashion and he was seen late and with a late revascularization. This reduces the chance of recovery. With persistent lowish blood pressure, unable to tolerate medications, this will be a problem. He may be one of the patients who would need advanced heart failure therapy sooner than later. RECOMMENDATIONS: 1. Complete limited transthoracic echocardiogram before start on inotrope if possible. This did document his ejection fraction and LV SHERLY that this may qualify him for advanced heart failure therapy. 2. Consider starting dobutamine IV GTT if his systolic blood pressure persistently falls below 95 and unable to start any medication. 3. Please consider placing PICC if dobutamine is started. He will need this for long-term support. However, I will be happy to arrange for long-term followup in managing long-term infusion. 4. Once his pressure tolerates, we can start with his prostate medication. I will also recommend start low-dose valsartan 40 mg daily at first. If he tolerates that, that will allow him to go to [facility]. 5. With sufficient documentation of [facility] serviced connected, we may need to start evaluation for left ventricular assist device sooner than later. I had experiences seeing patients in the past where they did not recover at all from a myocardial infarction where an LVAD was implanted shortly after a myocardial infarction. So LVAD post [place] is not an unusual occurrence. It has been a pleasure taking care of Mr. Amador. We thank you for the consult. If you have any questions, please feel free to give me a call. Job ID: [id number] [facility]
--- NOTE | 2019-06-03 20:40 | PDOC.HOSPP ---
- Subjective Subjective: Feels ok. No complaints. No CP, No SOb. - Objective Vital Signs & Weight: Vital Signs (12 hours) Temp 06/03/19 19:00 99.9 F H 06/03/19 16:00 99.7 F H 06/03/19 12:00 98.6 F Weight Weight 179 lb 3.773 oz Most Recent Monitor Data Heart Rate from ECG 93 NIBP 101/54 NIBP BP-Mean 69 Respiration from ECG 22 SpO2 96 I&O: 06/02/19 06/03/19 06/04/19 06:59 06:59 06:59 Intake Total 715.5 2766 326.1 Output Total 1965 1062 457 Balance -1249.5 1704 -130.9 Result Diagrams: 06/02/19 03:54 06/01/19 08:51 Hospitalist ROS - Medication Medications: Active Medications Generic Name Dose Route Start Last Admin Trade Name Freq PRN Reason Stop Dose Admin Acetaminophen/Codeine Phosphate 2 tab 05/30/19 11:14 06/01/19 18:04 Tylenol #3 PO 2 tab Q4H PRN Administration PAIN (4-6) Aspirin 81 mg 05/31/19 09:00 06/03/19 09:00 Ecotrin PO 81 mg DAILY SHARIF Administration Atorvastatin Calcium 40 mg 05/30/19 21:00 06/02/19 20:40 Lipitor PO 40 mg HS SHARIF Administration Cyclobenzaprine HCl 10 mg 05/31/19 08:35 06/01/19 21:05 Flexeril PO 10 mg TID PRN Administration Muscle Spasm Enoxaparin Sodium 30 mg 06/01/19 09:00 06/03/19 09:01 Lovenox SC 30 mg 0900,2099 SHARIF Administration Norepinephrine Bitartrate 8 mg 250 mls @ 0 mls/hr 05/30/19 10:48 05/31/19 21: 55 / Dextrose/Water IVPB 250 mls INF PRN Administration TO MAINTAIN MAP > 65 Protocol As Directed Dobutamine HCl/Dextrose 250 mls @ 6.098 mls/hr 06/03/19 11:30 06/03/19 12:10 Dobutamine 500 Mg/250 Ml IVPB 250 mls INF SHARIF Administration Protocol 2.5 MCG/KG/MIN Morphine Sulfate 4 mg 05/30/19 11:14 05/31/19 07:56 Morphine SLOW IVP 4 mg Q4H PRN Administration Chest Pain (7-10) Morphine Sulfate 2 mg 05/30/19 11:18 05/30/19 14:39 Morphine SLOW IVP 2 mg Q4H PRN Administration CHEST PAIN (4-6) Ondansetron HCl 4 mg 05/31/19 09:42 05/31/19 10:59 Zofran Odt PO 4 mg Q6H PRN Administration Nausea/Vomiting Sodium Chloride 10 ml 05/30/19 21:00 06/03/19 09:53 Flush - Normal Saline IVF 10 ml Q12HR SHARIF Administration Ticagrelor 90 mg 05/30/19 21:00 06/03/19 09:00 Brilinta PO 90 mg BID SHARIF Administration - Exam General Appearance: NAD, awake alert Heart: RRR, no murmur, no gallops, no rubs, normal peripheral pulses Respiratory: CTAB, no wheezes, no rales, no ronchi, normal chest expansion, no tachypnea, normal percussion Gastrointestinal: soft, non-tender, non-distended, normal bowel sounds, no palpable masses, no hepatomegaly, no splenomegaly, no bruit Musculoskeletal: normal tone, normal strength Psychiatric: normal affect, normal behavior, A&O x 3 Hosp A/P (1) Acute on chronic systolic heart failure Code(s): I50.23 - ACUTE ON CHRONIC SYSTOLIC (CONGESTIVE) HEART FAILURE Status : Acute (2) Alcohol abuse Code(s): F10.10 - ALCOHOL ABUSE, UNCOMPLICATED Status: Acute (3) BPH (benign prostatic hyperplasia) Code(s): N40.0 - BENIGN PROSTATIC HYPERPLASIA WITHOUT LOWER URINRY TRACT SYMP Status: Acute (4) CAD (coronary artery disease) Code(s): I25.10 - ATHSCL HEART DISEASE OF [place] CORONARY ARTERY W/O ANG PCTRS Status: Acute Qualifiers: Coronary Disease-Associated Artery/Lesion type: hughes artery [place] vs. transplanted heart: hughes heart Associated angina: angina presence unspecified Qualified Code(s): I25.10 - Atherosclerotic heart disease of [place] coronary artery without angina pectoris (5) Cardiogenic shock Code(s): R57.0 - CARDIOGENIC SHOCK Status: Acute (6) Cardiomyopathy, ischemic Code(s): I25.5 - ISCHEMIC CARDIOMYOPATHY Status: Acute (7) Hypotension after procedure Code(s): I95.81 - POSTPROCEDURAL HYPOTENSION Status: Acute (8) Non compliance with medical treatment Code(s): Z91.19 - PATIENT'S NONCOMPLIANCE W OTH MEDICAL TREATMENT AND REGIMEN Status: Acute (9) ST elevation (STEMI) myocardial infarction involving left anterior descending coronary artery Code(s): I21.02 - STEMI INVOLVING LEFT ANTERIOR DESCENDING CORONARY ARTERY Status: Acute (10) Tobacco abuse disorder Code(s): Z72.0 - TOBACCO USE Status: Acute - Plan He is currently stable on a dobutamine gtt. Followed by Cardiology and Advanced Heart Failure. Continue gtt. Apparently this is a bridge to LVAD. Defer to cards.
[2019-06-03] MEDS: Atorvastatin Calcium 40 MG TAB PO SCH (20:59)
[2019-06-04 09:56] LABS: #Eosinphils 0.1 thou/uL (0.0-0.7); #Lymphocytes 1.3 thou/uL (1.20-3.40); #Monocytes 0.5 thou/uL (0.11-0.59); #Neutrophils 4.6 thou/uL (1.40-6.50); %Basophils 0.4 % (0.0-1.0); %Eosinophils 1.7 % (0.0-10.0); %Lymphocytes 19.6 % (21.0-51.0); %Monocytes 7.3 % (0.0-10.0); Hemoglobin 9.6 g/dL (14.0-18.0); Mean Corpuscular HGB CONC 34.7 g/dL (32.0-36.0); Mean Corpuscular Hemoglobin 33.8 pg (27.0-31.0); Mean Corpuscular Volume 97.3 fL (78.0-98.0); Mean Platelet Volume 7.1 fL (7.4-10.4); Platelet Count 215 thou/uL (130-400); RBC Distribution Width 12.6 % (11.5-14.5); Red Blood Cell (RBC) Count 2.83 mill/uL (4.70-6.10); White Blood Cell (WBC) Count 6.4 thou/uL (4.8-10.8)
--- NOTE | 2019-06-04 10:08 | PRG ---
DATE OF SERVICE: 06/04/2019 INTERVAL HISTORY: The patient is doing fine from respiratory standpoint. He got started on dobutamine only yesterday. His blood pressures were marginal. Otherwise, there has been no interval change to his condition. Dr. Alexis would like to leave him in the ICU until he can clearly tolerate his Flomax. OBJECTIVE: VITAL SIGNS: Afebrile, pulse 75, blood pressure 94/53, respirations 22, saturation 97%, currently on 0.5 L nasal cannula. GENERAL: The patient is awake and alert, in no apparent distress. LUNGS: Decent air entry. There are asymmetric crackles, which were much worse on the left compared to the right. HEART: Normal rate and regular. ABDOMEN: Soft, nontender, nondistended. Bowel sounds are positive. MUSCULOSKELETAL: No cyanosis or clubbing. There is no pitting in the bilateral lower extremities. NEUROLOGIC: Grossly nonfocal. LABORATORY DATA: WBC 11.5, hemoglobin 10.9, and platelets 155,000. Basic metabolic profile is unremarkable except for potassium of 3.6. Liver function studies are completely unremarkable. The AST has nearly come down to a normal range. ASSESSMENT: 1. Acute ST-elevation myocardial infarction, status post percutaneous coronary intervention. 2. Chronic systolic heart failure. 3. Acute hypoxic respiratory failure, improving. DISCUSSION AND PLAN: The patient is stable for transition out of the ICU to the telemetry unit. Potassium will be replaced today. Dr. Alexis would like for him to stay in the ICU until his blood pressure is stable back on his Flomax, we will start that immediately. Pulmonary/Critical Care will follow along for the time being. Job ID: [id number] MTDD
--- NOTE | 2019-06-04 10:12 | PRG ---
DATE OF SERVICE: 06/04/2019 SUBJECTIVE: Mr. Amador had a variable day yesterday. According to the nursing report, during the day, his blood pressure was in the 80s and also low 90s. He also has slight positive fluid balance. Due to sustained low blood pressure, dobutamine 2.5 mcg/kg was started. After start of dobutamine, his blood pressure increased about 10 mmHg across the bore and now he is in the 90s and 100s. After 12 hours of being on dobutamine, his urine output increased, it was negative 535 with start of dobutamine. Mr. Amador generally feels well. He said he does not have any palpitation or chest pain, no syncope. However, he said he is developing bouts of dry cough, that were 2 bouts of dry cough that woke him up last night, one about 11 o'clock in the morning, one at around 4:00 a.m. in the morning. He has not been able to get up much. He said on the first day he could not even stand up. Now he can sit in a chair and walk to the bathroom, but not much more beyond that. REVIEW OF SYSTEM: CONSTITUTIONAL: Steady energy level, a little bit better perhaps, but no big changes. He denies fever and chills. RESPIRATORY: He may have some shortness of breath, but does not complain anything of that. CARDIOVASCULAR: Please see HPI. GI: He does not complain of nausea, vomiting, diarrhea, or blood in the stool. : He is still on a Oconnor. He did report in the past he cannot urinate without combination of Flomax and Proscar. There is no burning in the bladder area. MUSCULOSKELETAL: There is no joint pain but he generally feels weak. NEUROLOGIC: There are no focal deficits. INTEGUMENT: He does not report any areas of skin breakdowns. PSYCHIATRIC: He is not depressed. ONGOING CARDIAC MEDICATION: 1. Dobutamine at 2.5 mcg/kg/minute. 2. Atorvastatin 40 mg at bedtime. 3. Aspirin 81 mg daily. 4. Brilinta which is ticagrelor, 90 mg b.i.d. 5. Enoxaparin 30 mg subcutaneous for DVT prophylaxis. PHYSICAL EXAMINATION: VITAL SIGNS: Heart rate 84, blood pressure 105/57. Oxygen saturation is 98% on room air. GENERAL: He is alert and conversational, in no acute distress. When he talks a long sentence, he can get short of breath, but less so than yesterday. HEENT: EOMI, PERRL. Oropharynx benign with moist mucosa. There is no erythema , no exudate. NECK: His JVP is slightly more elevated at 11 cm with positive hepatojugular reflux. LUNGS: Good air movement and clear to auscultation on the right. However, he has a new development of crackles at the left base. HEART: Regular rhythm, S1 and S2, rate about in the 70s to 80s overall for last 12 hours. There is a very slight 1/6 holosystolic murmur near the apex with some radiation to the left axilla. His PMI seem to be inferolaterally displaced about the 6th intercostal space to the lateral off the midclavicular line. ABDOMEN: Soft, nontender. Positive bowel sounds. There is 2/6 systolic bruit in the right groin. There are no bruit in the left groin and there are no hematoma in either places. EXTREMITIES: There are good palpable dorsalis pedis pulses in both feet. LABORATORY DATA: There are no new labs. ASSESSMENT: A 64-year-old gentleman remains in [place] Heart Association stage C, possibly stage D heart failure. His [place] Heart Association in class likely 3B. He has a heart failure with reduced ejection fraction due to ischemia and recent myocardial infarction. His myocardial infarction likely taken over 2 days. That occurred in stuttering fashion. He had a very late revascularization, likely longer than 24 hours after the initial event. This combination reduces the chance of recovery after revascularization and now he is demonstrating a need for a dobutamine supplement. We will still try to initiate perhaps possibly guideline directed medical therapy. However, there is some chance that he will need advanced heart failure treatment sooner than later. RECOMMENDATIONS: 1. Please do the labs now. This will provide guidance for diuretics. 2. We will choose diuretics, possibly small dose of IV Lasix or oral Bumex depending on the lab results. We will also initiate potassium and magnesium supplement based on lab results. Hold off Flomax for now, especially in the light of starting a diuresis. 3. Start Flomax tomorrow. 4. Please keep the patient in either the CCU or IMCU. He will need frequent blood pressure monitoring. He needs to demonstrates stability in blood pressure before he could be moved out of the unit, specially with the start of Flomax. 5. With demonstration of blood pressure stability to diuretics and Flomax at that time, then we can start Entresto low dose once a day with holding threshold of systolic blood pressure less than 95, so can give it above 95, but do not give it below 95. 6. The patient will need special preparations to see what is available in [facility]. There is some chance that he will need long- term inotropic infusion. It is hoped that inotropic infusion can be turned off. However, that would take time. It has been a pleasure taking care of Mr. Amador. Thank you very much for the consultation request. If you any questions, please give me a call. Job ID: [id number] MTDD
[2019-06-04] MEDS ORDERED: Potassium Chloride 20 MEQ TAB PO SCH (10:15)
[2019-06-04] MEDS ORDERED: Tamsulosin HCl 0.4 MG CAP PO SCH (10:15)
[2019-06-04 10:18] LABS: ALT (SGPT) 21 U/L (8-55); AST (SGOT) 25 U/L (5-34); Albumin 3.3 g/dL (3.4-4.8); Alkaline Phosphatase 53 U/L (40-110); Anion Gap 13 mmol/L (10-20); BUN (Urea Nitrogen) 12 mg/dL (8.4-25.7); Bilirubin, Total 0.9 mg/dL (0.2-1.2); Calc. Creatinine Clearance 105 mL/min (70-130); Calcium 8.4 mg/dL (7.8-10.44); Carbon Dioxide 22 mmol/L (23-31); Chloride 101 mmol/L (98-107); Estimated GFR-MDRD Greater than 90; Globulin 2.9 g/dL (2.4-3.5); Glucose 128 mg/dL (80-115); Potassium 3.5 mmol/L (3.5-5.1); Protein, Total 6.2 g/dL (5.8-8.1); Sodium 132 mmol/L (136-145)
[2019-06-04] MEDS: Aspirin 81 mg Enteric Coated Tablet PO SCH (10:43)
[2019-06-04] MEDS: Finasteride 5 MG TAB PO SCH (10:43)
[2019-06-04] MEDS: Enoxaparin Sodium 30 MG/0.3 ML SYRINGE SC SCH ×2 (10:44→21:07)
[2019-06-04] MEDS: TICAGRELOR 90 MG TABLET PO SCH ×2 (10:44→21:07)
--- NOTE | 2019-06-04 11:38 | PRG ---
DATE OF SERVICE: 06/04/2019 SUBJECTIVE: Mr. Amador is doing better today. He is out on the intermediate care unit. His blood pressure did improve on the dobutamine recommended by Dr. Alexis. OBJECTIVE: VITAL SIGNS: His blood pressure is 110/60, pulse 70. LUNGS: Clear. CARDIAC: Normal S1, normal S2. ABDOMEN: Soft, nontender. EXTREMITIES: There is no edema. Dr. Schmidt noted a bruit in the right groin. ASSESSMENT: 1. Congestive heart failure, improved clinically on dobutamine. 2. Dr. Schmidt heard a bruit in the right groin. The patient tells me they did have to use FemoStop after the balloon pump was withdrawn. PLAN: 1. We will go ahead and do ultrasound of the groin to make sure there is no pseudoaneurysm. 2. Continue current medical regimen at the present time. Job ID: [id number]
--- NOTE | 2019-06-04 12:30 | PRG ---
DATE OF SERVICE: 06/04/2019 SUBJECTIVE: The patient is seen and examined at the bedside. He is in the CCU bed C5. He does not have much complaints to offer. He has good appetite. He had bowel movements. He is still on dobutamine drip. OBJECTIVE: VITAL SIGNS: Blood pressure is 103/63, pulse is 73, respiratory rate is 22, O2 saturation is 98%. HEENT: Head is atraumatic and normocephalic. Eyes are PERRLA. Sclerae are nonicteric. Oral mucosa is moist. NECK: Supple. LUNGS: Breath sounds somewhat diminished at both bases with few crackles bilaterally. HEART: S1 and S2 normal. No S3. ABDOMEN: Soft, nontender, nondistended. EXTREMITIES: No clubbing, cyanosis, or edema. NEUROLOGICAL: He is alert and oriented x4. There is no any motor deficits. LABORATORY DATA: Labs showed white count of 6.4, hemoglobin 9.6, hematocrit 27.5, platelet count is 215,000. Sodium of 132, potassium 3.5, chloride 101, CO2 of 22, BUN 12, creatinine 0.84, glucose 128. The rest of chemistry within normal limits except for albumin which is 3.3. IMPRESSION: 1. Acute on chronic systolic heart failure. 2. Cardiomyopathy ischemic. 3. Acute ST-elevation myocardial infarction status post percutaneous coronary intervention. 4. Cardiogenic shock. 5. Alcohol abuse. 6. Noncompliance with medical treatments. 7. BPH. PLAN: The patient will be kept in ICU/IMCU area and based on Dr. Alexis's recommendation, he will continue on his dobutamine low dose; Flomax will be is started tomorrow if it is possible, if the blood pressure allows. He will continue on Brilinta and aspirin. Job ID: [id number]
--- NOTE | 2019-06-04 14:50 | ULT ---
Arterial duplex sonogram right groin HISTORY: Right groin pain. Bruit. FINDINGS: Good color and spectral Doppler flow within the common femoral artery and vein. No evidence of adjacent fluid collection, pseudoaneurysm, or arteriovenous fistula. IMPRESSION: No abnormalities are demonstrated.
[2019-06-04] MEDS ORDERED: Furosemide 40 MG/4 ML VIAL SLOW IVP SCH (15:45)
[2019-06-04] MEDS: Atorvastatin Calcium 40 MG TAB PO SCH (21:07)
[2019-06-05 04:18] LABS: Anion Gap 15 mmol/L (10-20); BUN (Urea Nitrogen) 13 mg/dL (8.4-25.7); Calc. Creatinine Clearance 105 mL/min (70-130); Calcium 8.7 mg/dL (7.8-10.44); Carbon Dioxide 21 mmol/L (23-31); Chloride 99 mmol/L (98-107); Estimated GFR-MDRD Greater than 90; Glucose 108 mg/dL (80-115); Magnesium 1.9 mg/dL (1.6-2.6); Potassium 3.6 mmol/L (3.5-5.1); Sodium 131 mmol/L (136-145)
[2019-06-05] MEDS: DOBUTamine 500 mg/250 ml 250 ML IVPB SCH (06:10)
[2019-06-05] MEDS: Potassium Chloride 20 MEQ TAB PO SCH ×2 (08:21→20:22)
[2019-06-05] MEDS: Finasteride 5 MG TAB PO SCH (08:21)
[2019-06-05] MEDS: Enoxaparin Sodium 30 MG/0.3 ML SYRINGE SC SCH ×2 (08:21→20:21)
[2019-06-05] MEDS: TICAGRELOR 90 MG TABLET PO SCH ×2 (08:21→20:22)
[2019-06-05] MEDS: Aspirin 81 mg Enteric Coated Tablet PO SCH (08:57)
[2019-06-05] MEDS ORDERED: Bumetanide 1 MG TAB PO SCH (09:00)
[2019-06-05] MEDS ORDERED: Tamsulosin HCl 0.4 MG CAP PO SCH ×2 (09:00→11:15)
--- NOTE | 2019-06-05 09:29 | PRG ---
DATE OF SERVICE: 06/05/2019 SUBJECTIVE: Mr. Amador was able to maintain the blood pressure in the 90s to 100s, once in a while up to 110. However, he had a not very well thought day. He said that he missed his breakfast and lunch 2 days in a row. His friend had to go and bring him food from an outside place. He was quite dissatisfied with the care. Due to pulmonary edema, Lasix 40 mg IV was given that produced a net negative 2.5 L out. Because of that, he does not have any more dry cough that went throughout the night. However, he still slept in a recliner all night. He said that he was not really able to sleep last night. Some of that could be due to he being upset. Last night about 9 p.m. after Lasix has worn off, he developed a bout of shortness of breath. He asked for oxygen by nasal cannula. Eventually, he was able to receive it. REVIEW OF SYSTEMS: GENERAL: Energy level about the same, but generally somewhat upset. He denied fever or chills. HEENT: There is no change in vision, hearing, or swallowing. PULMONARY: He has had a bout of shortness of breath. See the note. CARDIOVASCULAR: He denied chest pains, palpitations, or syncope. GI: Please see overnight events. : He said that it takes one day for a combination of Flomax and Proscar to work before he can urinate again. Currently, he does not have any bladder pains. MUSCULOSKELETAL: He sits in the recliner. He really has not been mobile, but he has been complaining of any other joint problems. INTEGUMENT: He does not have any new skin breakdown that he reports of. NEUROLOGIC: He does not have any focal deficits. PSYCHIATRIC: He is not depressed, but he is upset about the care that he has been receiving. MEDICATIONS: Current cardiac medications include, 1. Atorvastatin 40 mg daily. 2. Bumex 0.5 mg a day daily. 3. Dobutamine 2.5 mcg/kg IV GTT. 4. Enoxaparin 30 mg subcutaneous for DVT prophylaxis. 5. Ticagrelor 90 mg p.o. b.i.d. PHYSICAL EXAMINATION: VITAL SIGNS: Heart rate between 70s and 80s on average, blood pressure 115/60. GENERAL: He is alert, conversational, and animated this morning. HEENT: Shows EOMI, PERRL. Oropharynx benign. There is no erythema. NECK: His JVP is lower today about 10 cm, but positive hepatojugular reflux. LUNGS: Clear to auscultation bilaterally. His left lung has cleared with IV diuresis yesterday. HEART: Regular rate and rhythm. There is no concerning murmur or gallops. No rubs today. His PMI is inferiorly and laterally displaced about the sixth intercostal space just lateral to the midclavicular. ABDOMEN: Soft, nontender. Positive bowel sounds. : Right groin, he still has that 2/6 bruit in the right groin. EXTREMITIES: The lower extremities are without edema that of palpable dorsalis pedis pulses bilaterally. LABORATORY DATA: His sodium is slow at 131, potassium is 3.6, creatinine is 0.89. His BNP is at 707. He has a net negative at 2.557 L for the last 24 hours. ASSESSMENT: A 64-year-old gentleman likely has either [place] Heart Association stage C or stage D heart failure with reduced ejection fraction. He has both systolic and diastolic dysfunctions. It is due to recent myocardial infarction. There was a greater than 24-hour delay between initial presentation and stent opening of the left anterior descending. He has Q-wave upon presentation to the anterior leads. Delayed revascularization with Q-wave upon presentation would make him less likely to recover. For the last 2 days now, he has demonstrated that he needed dobutamine support and also active diuretic support. Today, he is near euvolemic; however, he will still need diuresis. I hope that we can restart both his prostate medication that the Oconnor could be taken out afterwards. We will attempt at adding Entresto directly at a lower dose and then weaning off dobutamine. If that is unsuccessful, then he will need long-term inotropic therapy. At this point, advanced heart failure therapy maybe needed sooner than later. We will start the process of contacting the [facility] for potential transfer. RECOMMENDATIONS: 1. Give K-Dur 40 mEq now. 2. Increase frequency to Bumex 0.5 mg to b.i.d. 3. Start Flomax 0.4 mg p.o. daily today. If he tolerates it, can pull the Oconnor tomorrow morning, then we will reassess his conditions and potentially start Entresto directly. Due to his potential drops in blood pressures, he will need to stay at [facility] at least for another day. 4. Please help the patient to make sure that he gets his food on time today. It has been a pleasure taking care of Mr. Amador. Thank you for this interesting consult. If you have any questions, please give me a call. Job ID: [id number] MTDD
--- NOTE | 2019-06-05 09:53 | PRG ---
DATE OF SERVICE: 06/05/2019 SUBJECTIVE: This morning, he is awake, alert, and responsive. OBJECTIVE: VITAL SIGNS: Temperature 98, blood pressure 111/65, respiratory rate 18, pulse 80. He is still on Dobutrex. CHEST: No wheezing or crackles. CARDIAC: Normal S1 and S2. No gallops. LABORATORY DATA: Marker BNP 706. ASSESSMENT: Status post acute coronary syndrome, which is a cardiac cath, Dobutrex, and intra-aortic balloon pump. Respiratory failure, congestive heart failure. Pulmonary aguila, appears to be stable. We will follow at a distance. Please call as needed. Job ID: [id number]
[2019-06-05] MEDS ORDERED: Potassium Chloride 20 MEQ TAB PO SCH (11:15)
--- NOTE | 2019-06-05 11:55 | PDOC.CPN ---
- Subjective Date: 06/05/19 Time: 12:03 Interval history: The pt seen and examined. No overnight events. No cardiac complaints. He exercised with PT today - Objective Allergies/Adverse Reactions: Allergies Allergy/AdvReac Type Severity Reaction Status Date / Time No Known Allergies Allergy Unverified 05/30/19 10:50 Visit Medications: Current Medications Acetaminophen/Codeine Phosphate (Tylenol #3) 1 tab PO Q4H PRN PRN Reason: PAIN (1-3) Acetaminophen/Codeine Phosphate (Tylenol #3) 2 tab PO Q4H PRN PRN Reason: PAIN (4-6) Last Admin: 06/01/19 18:04 Dose: 2 tab Aspirin (Ecotrin) 81 mg PO DAILY [facility] Last Admin: 06/05/19 08:57 Dose: 81 mg Atorvastatin Calcium (Lipitor) 40 mg PO HS [facility] Last Admin: 06/04/19 21:07 Dose: 40 mg Bumetanide (Bumex) 0.5 mg PO BID [facility] Cyclobenzaprine HCl (Flexeril) 10 mg PO TID PRN PRN Reason: Muscle Spasm Last Admin: 06/01/19 21:05 Dose: 10 mg Enoxaparin Sodium (Lovenox) 30 mg SC 0900,2100 [facility] Last Admin: 06/05/19 08:21 Dose: 30 mg Finasteride (Proscar) 5 mg PO DAILY [facility] Last Admin: 06/05/19 08:21 Dose: 5 mg Dobutamine HCl/Dextrose (Dobutamine 500 Mg/250 Ml) 250 mls @ 6.098 mls/hr IVPB INF [facility]; Protocol Last Admin: 06/05/19 06:10 Dose: 250 mls Magnesium Hydroxide (Milk Of Magnesium) 30 ml PO Q12H PRN PRN Reason: Constipation Morphine Sulfate (Morphine) 2 mg SLOW IVP Q4H PRN PRN Reason: CHEST PAIN (4-6) Last Admin: 05/30/19 14:39 Dose: 2 mg Ondansetron HCl (Zofran Odt) 4 mg PO Q6H PRN PRN Reason: Nausea/Vomiting Last Admin: 05/31/19 10:59 Dose: 4 mg Potassium Chloride (K-Dur) 20 meq PO BID [facility] Last Admin: 06/05/19 08:21 Dose: 20 meq Potassium Chloride (K-Dur) 40 meq PO NOW [facility] Stop: 06/05/19 13:00 Last Admin: 06/05/19 11:30 Dose: Not Given Sodium Chloride (Flush - Normal Saline) 10 ml IVF PRN PRN PRN Reason: Saline Flush Sodium Chloride (Flush - Normal Saline) 10 ml IVF Q12HR [facility] Last Admin: 06/05/19 08:22 Dose: 10 ml Tamsulosin HCl (Flomax) 0.4 mg PO DAILY [facility] Tamsulosin HCl (Flomax) 0.4 mg PO NOW [facility] Stop: 06/05/19 13:00 Last Admin: 06/05/19 11:30 Dose: 0.4 mg Ticagrelor (Brilinta) 90 mg PO BID [facility] Last Admin: 06/05/19 08:21 Dose: 90 mg Zolpidem Tartrate (Ambien) 5 mg PO HS PRN PRN Reason: Insomnia Vital Signs & Weight: Vital Signs Temp Pulse Pulse BP BP Pulse Ox Pulse Ox 06/05/19 11:13 98.9 F 06/05/19 09:35 93 78 104/61 92/55 L 99 06/05/19 08:00 98 06/05/19 07:15 98.4 F 06/05/19 03:25 99.0 F Pulse Ox 06/05/19 11:13 06/05/19 09:35 98 06/05/19 08:00 06/05/19 07:15 06/05/19 03:25 Weight 179 lb 3.773 oz - Quality Measures CV meds: Beta Natalya: Yes, SHENG/ARB: No (BP low. start entresto when BP stable.) , Statin: Yes, ASA: Yes - Physical Exam General: alert & oriented x3 Neck: supple neck Cardiac: regular rate and rhythm, S1/S2 Lungs: clear to auscultation Neuro: cranial nerve 2-12 intact Abdomen: unremarkable Extremities: no cyanosis Skin: clear Musculoskeletal: normal range of motion - Labs Result Diagrams: 06/04/19 09:44 06/05/19 03:41 Troponin/CKMB CK-MB (CK-2) 256.5 ng/mL (0-6.6) H* 05/30/19 23:50 Troponin I 140.033 ng/mL (< 0.028) H* 05/30/19 23:50 - Telemetry Sinus rhythms and dysrhythmias: sinus rhythm - Assessment/Plan Assessment/Plan: 1. CAD with s/p PCI with BMS in prox LAD,large anterior ME and 50% stenosis in mid RCA - on Dobutamin 2.5mcg/kg/min. Statin, ASA, and Brilinta; stable. 2. Acute on Chronic Systolic HF with EF 25-30% - on Dobutamine; off BBlocker.On Bumax 0.5mg BID; When d/c dobutamine, will start Entresto. Possible Tx to [facility] for a bridge to LVAD (Appreciate to Dr Alexis's input!) 3. Ischemic CMY 4. Hx of CVA 5. HLD - On Statin 6. Elevated LFT 7. ETOH and Tobacco abuse - strongly recommend MICHOACANO and Tobacco cessation. 8. Hypotension - stable at present. 9. BPH - Flomax was started from today OCT reviewed
--- NOTE | 2019-06-05 13:38 | PRG ---
DATE OF SERVICE: 06/05/2019 SUBJECTIVE: The patient is seen and examined at bedside. He is quite upset this morning because he had some problems with food and with the nursing staff last night. OBJECTIVE: VITAL SIGNS: Blood pressure is 95/60, pulse is 85, respiratory rate is 20, and temperature is 98.9. HEENT: His head is atraumatic and normocephalic. Eyes are PERRLA. Sclerae are nonicteric. Oral mucosa is moist. NECK: Supple. LUNGS: Clear. HEART: S1 and S2 normal. No S3. No S4. No any murmur. ABDOMEN: Soft, nontender, and nondistended. EXTREMITIES: No clubbing, cyanosis, or edema. NEUROLOGIC: He is alert and oriented x4. There are no any motor or sensory deficits. LABORATORY DATA: Labs showed sodium of 131, potassium 3.6, chloride 99, CO2 of 21, BUN 13, creatinine 0.84, and BNP 706.7. IMPRESSION: 1. Acute on chronic systolic heart failure. 2. Cardiomyopathy, ischemic. 3. Acute ST-elevation myocardial infarction, status post percutaneous coronary intervention. 4. Cardiogenic shock. 5. Alcohol abuse. 6. Noncompliance with medical treatments. 7. BPH. PLAN: The patient is closely followed in the IMCU setting. He is still on dobutamine drip low dose. He is started on Flomax. Dr. Alexis is following. He recommends to continuation of the regimen plus maybe introducing small dose of Entresto tomorrow. Also, he would like to start the transition to [facility] setting started. He is on Bumex 0.5 mg twice a day at this point, finasteride 5 mg once a day, potassium chloride 20 mEq twice a day. He had 40 mEq of potassium chloride one dose today. Also, he is on Flomax 0.4 mg first dose today, then daily. He will continue on his ticagrelor 90 mg twice a day. Job ID: [id number]
[2019-06-05] MEDS: Ondansetron ODT 4 MG TAB PO PRN (18:02)
[2019-06-05] MEDS: FLU VACC QS2019-20(6MOS UP)/PF 60 MCG/0.5 ML SYRINGE IM ONE (18:26)
[2019-06-05] MEDS: Bumetanide 1 MG TAB PO SCH (20:21)
[2019-06-05] MEDS: Atorvastatin Calcium 40 MG TAB PO SCH (20:22)
[2019-06-06] MEDS ORDERED: Tobramycin 80 MG/2 ML VIAL ONE (05:13)
[2019-06-06 07:30] LABS: Anion Gap 16 mmol/L (10-20); BUN (Urea Nitrogen) 15 mg/dL (8.4-25.7); Calc. Creatinine Clearance 91 mL/min (70-130); Calcium 8.7 mg/dL (7.8-10.44); Carbon Dioxide 22 mmol/L (23-31); Chloride 97 mmol/L (98-107); Estimated GFR-MDRD Greater than 90; Glucose 120 mg/dL (80-115); Potassium 4.1 mmol/L (3.5-5.1); Sodium 131 mmol/L (136-145)
[2019-06-06] MEDS: Bumetanide 1 MG TAB PO SCH ×2 (08:34→22:58)
[2019-06-06] MEDS: Enoxaparin Sodium 30 MG/0.3 ML SYRINGE SC SCH ×2 (08:34→23:14)
[2019-06-06] MEDS: Aspirin 81 mg Enteric Coated Tablet PO SCH (08:35)
[2019-06-06] MEDS: TICAGRELOR 90 MG TABLET PO SCH ×2 (08:35→23:15)
[2019-06-06] MEDS: Finasteride 5 MG TAB PO SCH (08:35)
[2019-06-06] MEDS: Potassium Chloride 20 MEQ TAB PO SCH ×2 (08:35→23:15)
--- NOTE | 2019-06-06 08:57 | PRG ---
DATE OF SERVICE: 06/06/2019 This is from [facility] consulting service. SUBJECTIVE: Mr. Amador had a better day yesterday. He got along well with the nursing staff and ate well. He was able to ambulate around the unit at least once. Flomax was also started. Apparently, he was able to maintain his blood pressure in the high 90s to the mid 100s without difficulties. He said that he wants to do well. He said that he wants to see his grandchildren young currently young as 1 year old to graduate from high school, and then he would appreciate a definitive therapy that will allow him to do that. REVIEW OF SYSTEMS: GENERAL: Energy level a little bit better today. Denies fever or chills. HEENT: There is no change in vision, hearing, or swallowing. CARDIOVASCULAR: He denied chest pain, palpitations, or syncope. GI: He is able to eat well. : As a reminder, he takes combination of Flomax and Proscar to allow him to urinate. Currently, he does not have any bladder pains. MUSCULOSKELETAL: He is able to walk yesterday. There is no complaint. INTEGUMENT: Does not have any new skin breakdown. NEUROLOGIC: He does not have any focal deficits. PSYCHIATRIC: He is not depressed, but he is very emotional. He does want to see his grandchildren to graduate from high school. MEDICATIONS: Current cardiac medications include, 1. Enoxaparin 30 mg daily for DVT prophylaxis. 2. Dobutamine 2.5 mcg/kg/minute, IV GTT. 3. Atorvastatin 40 mg nightly, this needs to be increased to 80 mg nightly. 4. Bumex 0.5 mg b.i.d. 5. Aspirin 81 mg daily. 6. Brilinta 90 mg b.i.d. 7. Potassium chloride 20 mEq twice a day. His telemetry was reviewed. He had one short run of wide-complex tachycardia. It is irregular in nature, so this could be 7 beats of atrial fibrillation with aberrancy. This is need to be monitored. If this start to repeating or more often then amiodarone will need to be started. PHYSICAL EXAMINATION: VITAL SIGNS: Heart rate between 60s and 70s. His blood pressure is 106/59. His oxygen saturation is 97% on room air. GENERAL: He is alert and conversational, somewhat emotional today. However speaking long sentences will cause him to be short of breath. HEENT: Show EOMI, PERRL. Oropharynx benign. There is no erythema, no exudate. NECK: JVP is about 10 cm high with positive hepatojugular reflux. LUNGS: There are slight bilateral basilar crackles. CARDIAC: Regular rate and rhythm. Normal S1, S2. Very faint. 1/6 holosystolic murmur near the apex with radiation to the left axilla, his PMI is inferiorly and laterally displaced about 6th intercostal space lateral to the midclavicular line. ABDOMEN: Soft, nontender. Positive bowel sounds. EXTREMITIES: Lower extremities are well perfused and warm. Positive dorsalis pedis pulse bilaterally. There is only very very minimal or no edema. LABORATORY DATA: There is no labs done today. This needs to be checked. ASSESSMENT: 64-year-old gentleman resides either in. [place] [employer] stage C or stage D. Heart failure with reduced ejection fraction. This is caused by myocardial infarction. Unfortunately, his ST-elevation VT did not receive vascularization for greater than 24 hours; therefore, because his chances of recovery is low. He is currently functioning about [place] [employer] Class 3B. It is good that he is able to tolerate Flomax. However, he remains a bit volume overloaded. At this point, we will need to check his labs. Based on his labs, he will be provided electrolyte supplement, increase diuresis if needed. More beneficial, will be starting sacubitril/valsartan which is Entresto. It holds the best promise to protect and possibly restore his myocardium. If he is able to maintain his blood pressure while on low-dose Entresto then we can begin to titrate off dobutamine. This will be the best outcome. Once the dobutamine is titrated off then we can start low-dose carvedilol. In the meanwhile, we will still need to find a way to transfer to a [facility] for evaluating him for LVAD because this can be a long process. It is better to have it in place if needed. RECOMMENDATIONS: 1. Please check labs now this includes BMP, BNP, and magnesium. 2. Start Entresto which is sacubitril/valsartan at 24/ combination, hold if systolic blood pressure is less than 95. 3. Discontinue Oconnor catheter. 4. Ambulate the patient or help patient to ambulate. 5. If arrhythmia recurs on more frequent basis then amiodarone will need to be started. Hopefully, this could be avoided. 6. We will begin to work on transfer to different [facility] today. Yesterday was the . [facility] was not working yesterday. It has been a pleasure taking care of Mr. Amador. Thank you very much for this interesting consult. If you have any questions, please give me a call. Progression throughout the day and follow-up. Patient developed symptomatic hypotension sometime after 10-11 AM. In the afternoon, he required NS 250 ml bolus X 3 and increasing dobutamine to 5 mcg/kg /min ivgtt to stabilize systolic pressure about high 80s to low 90s. Afterwards , he was alert and conversational. His hypotension likely to have multi-factorial causes including insufficient volume and combination effects of Flomax and Entresto. Being on dobutamine for days can trigger down regulation of b1-receptors. B1 receptor will be endocytosed after agonist. Afterwards, it can be recycle back to cell surface or destroyed. If rate of intracellular destruction becomes excessive, density of surface b1 receptor will be reduced such that the heart will require higher concentration of dobutamine to respond. Thus, he may need to have higher dose of dobutamine. A possible solution is to add milrinone to prevent breakdown of cAMP, which is the effector second messenger of b1 stimulation. However, this does carry the risk of vasodilation in excess of increase in contractility to drop SBP. For now, agree with volume and hold off diuresis. If SBP drops below 80 mmHg, please consider increase dobutamine to 7.5 mcg/kg/min and then add norepinephrine if SBP does not increase to above 80 mmHg. At that point he will need to be transferred back to CCU for closer monitoring and active titration of IV drips. Separately, patient requested exploration of [facility] centers [facility] Contacted both centers for insurance screening for feasibility. This plan has been coordinated with Dr. Sena Mosher. I've spent greater than 80 minutes on multiple visits, counseling and explaining ongoing process with patient, and coordinating potential care with 3 LVAD centers ([facility], [facility], and [facility] - designated center for [facility] implantation). Job ID: [id number] [facility]
[2019-06-06] MEDS ORDERED: Tamsulosin HCl 0.4 MG CAP PO SCH (09:00)
--- NOTE | 2019-06-06 09:06 | PRG ---
DATE OF SERVICE: 06/06/2019 SUBJECTIVE: This morning, the patient is awake, alert, and responsive. OBJECTIVE: VITAL SIGNS: Temperature 97, blood pressure 120\76 respirations 18, and saturations are 98% on room air. CHEST: No wheezing or crackles. CARDIAC: Normal S1 and S2. No gallops. ABDOMEN: Soft. LABORATORY DATA: Sodium 131. IMPRESSION: 1. Status post myocardial infarction. 2. Congestive heart failure. 3. Hyponatremia, probably from diuretics. PLAN: Pulmonary-[place], much improved. Continue cardiac care. Pulmonary will follow at a distance. Call as needed. Job ID: [id number] [facility]
[2019-06-06 09:35] VITALS: BP 112/62
--- NOTE | 2019-06-06 10:46 | PDOC.HOSPP ---
- Subjective Encounter Date: 06/06/19 Encounter Time: 07:15 Subjective: Patient seen and examined. No new complaints. No overnight events - Objective Vital Signs & Weight: Vital Signs (12 hours) Temp Pulse Pulse BP BP Pulse Ox Pulse Ox 06/06/19 08:51 75 78 112/62 96/51 L 97 06/06/19 08:00 97 06/06/19 07:45 97.8 F 06/06/19 03:36 98.5 F 06/05/19 23:14 98.0 F Pulse Ox 06/06/19 08:51 97 06/06/19 08:00 06/06/19 07:45 06/06/19 03:36 06/05/19 23:14 Weight Weight 157 lb 6.561 oz Most Recent Monitor Data Heart Rate from ECG 88 NIBP 101/60 NIBP BP-Mean 73 Respiration from ECG 18 SpO2 95 I&O: 06/05/19 06/06/19 06/07/19 06:59 06:59 06:59 Intake Total 583.2 1346.1 200 Output Total 3140 2525 250 Balance -2556.8 -1178.9 -50 Result Diagrams: 06/04/19 09:44 06/06/19 07:01 EKG Reviewed by me: Yes Hospitalist ROS - Review of Systems Constitutional: denies: fever, chills, sweats, weakness, malaise, other ENT: denies: ear pain, ear discharge, nose pain, nose discharge, nose congestion , mouth pain, mouth swelling, throat pain, throat swelling, other Respiratory: reports: shortness of breath, SOB with excertion. denies: cough, dry, hemoptysis, pleuritic pain, sputum, wheezing, other Cardiovascular: denies: chest pain, palpitations, orthopnea, paroxysmal noc. dyspnea, edema, light headedness, other Gastrointestinal: denies: nausea, vomiting, abdominal pain, diarrhea, constipation, melena, hematochezia, other Genitourinary: denies: dysuria, frequency, incontinence, hematuria, retention, other Musculoskeletal: denies: neck pain, shoulder pain, arm pain, back pain, hand pain, leg pain, foot pain, other Skin: denies: rash, lesions, raymon, bruising, other - Medication Medications: Active Medications Generic Name Dose Route Start Last Admin Trade Name Freq PRN Reason Stop Dose Admin Acetaminophen/Codeine Phosphate 2 tab 05/30/19 11:14 06/01/19 18:04 Tylenol #3 PO 2 tab Q4H PRN Administration PAIN (4-6) Aspirin 81 mg 05/31/19 09:00 06/06/19 08:35 Ecotrin PO 81 mg DAILY [facility] Administration Atorvastatin Calcium 40 mg 05/30/19 21:00 06/05/19 20:22 Lipitor PO 40 mg HS [facility] Administration Bumetanide 0.5 mg 06/05/19 21:00 06/06/19 08:34 Bumex PO 0.5 mg BID [facility] Administration Cyclobenzaprine HCl 10 mg 05/31/19 08:35 06/01/19 21:05 Flexeril PO 10 mg TID PRN Administration Muscle Spasm Enoxaparin Sodium 30 mg 06/01/19 09:00 06/06/19 08:34 Lovenox SC 30 mg 0900,2100 [facility] Administration Finasteride 5 mg 06/04/19 09:00 06/06/19 08:35 Proscar PO 5 mg DAILY [facility] Administration Dobutamine HCl/Dextrose 250 mls @ 6.098 mls/hr 06/03/19 11:30 06/05/19 06:10 Dobutamine 500 Mg/250 Ml IVPB 250 mls INF [facility] Administration Protocol 2.5 MCG/KG/MIN Morphine Sulfate 2 mg 05/30/19 11:18 05/30/19 14:39 Morphine SLOW IVP 2 mg Q4H PRN Administration CHEST PAIN (4-6) Ondansetron HCl 4 mg 05/31/19 09:42 06/05/19 18:02 Zofran Odt PO 4 mg Q6H PRN Administration Nausea/Vomiting Potassium Chloride 20 meq 06/05/19 09:00 06/06/19 08:35 K-Dur PO 20 meq BID [facility] Administration Sacubitril/Valsartan 1 tab 06/06/19 09:00 06/06/19 09:20 Entresto 24 Mg-26 Mg Tablet PO 1 tab BID [facility] Administration Sodium Chloride 10 ml 05/30/19 21:00 06/06/19 08:35 Flush - Normal Saline IVF 10 ml Q12HR [facility] Administration Tamsulosin HCl 0.4 mg 06/06/19 09:00 06/06/19 08:35 Flomax PO 0.4 mg DAILY [facility] Administration Ticagrelor 90 mg 05/30/19 21:00 06/06/19 08:35 Brilinta PO 90 mg BID SH[facility] Administration - Exam General Appearance: NAD, awake alert Eye: PERRL, anicteric sclera ENT: normocephalic atraumatic, no oropharyngeal lesions Neck: supple, symmetric, no JVD, no thyromegaly Heart: RRR, no gallops, no rubs, normal peripheral pulses Respiratory: no wheezes, no rales, no ronchi Gastrointestinal: soft, non-tender, non-distended, normal bowel sounds Extremities: no cyanosis, no clubbing, no edema Skin: normal turgor, no lesions Neurological: cranial nerve grossly intact, normal sensation to touch, no focal deficits Musculoskeletal: normal tone, normal strength Psychiatric: normal affect, normal behavior Hosp A/P (1) Cardiogenic shock Code(s): R57.0 - CARDIOGENIC SHOCK Status: Acute (2) Acute on chronic systolic heart failure Code(s): I50.23 - ACUTE ON CHRONIC SYSTOLIC (CONGESTIVE) HEART FAILURE Status : Acute (3) Alcohol abuse Code(s): F10.10 - ALCOHOL ABUSE, UNCOMPLICATED Status: Chronic (4) BPH (benign prostatic hyperplasia) Code(s): N40.0 - BENIGN PROSTATIC HYPERPLASIA WITHOUT LOWER URINRY TRACT SYMP Status: Chronic Qualifiers: Lower urinary tract symptom presence: symptoms present (5) CAD (coronary artery disease) Code(s): I25.10 - ATHSCL HEART DISEASE OF [place] CORONARY ARTERY W/O ANG PCTRS Status: Chronic Qualifiers: Coronary Disease-Associated Artery/Lesion type: [place] artery [place] vs. transplanted heart: [place] heart Associated angina: angina presence unspecified Qualified Code(s): I25.10 - Atherosclerotic heart disease of [place] coronary artery without angina pectoris (6) Cardiomyopathy, ischemic Code(s): I25.5 - ISCHEMIC CARDIOMYOPATHY Status: Chronic (7) Non compliance with medical treatment Code(s): Z91.19 - PATIENT'S NONCOMPLIANCE W OTH MEDICAL TREATMENT AND REGIMEN Status: Chronic (8) Tobacco abuse disorder Code(s): Z72.0 - TOBACCO USE Status: Chronic - Plan old records reviewed/req continue dobutamine drip for now entresto added cardiology following plan to move to [facility] if possible medication reviewed as above symptomatic treatment
--- NOTE | 2019-06-06 11:38 | CON ---
DATE OF CONSULTATION: 06/06/2019 ADDENDUM: Please see my handwritten note in the chart on 06/06/2019. Please note, I have reviewed this patient. I have evaluated the events over the weekend. I evaluated his laboratory data and his present medications. Fortunately, this gentleman has done quite well relatively well over the weekend. He did have one episode of nonsustained ventricular tachycardia yesterday around 1:23 in the afternoon. He has not had any further arrhythmias. He was asymptomatic at that time. He has actually been doing much better since he was diuresed. The blood pressure has been maintained, and he continues to be able to ambulate in the halls. Two days ago, he did have shortness of breath with ambulation, but today he was able to ambulate without difficulties or shortness of breath. The Oconnor catheter was removed this morning and the patient is yet to void, but it feels like he will soon have the urge to go. As far as his heart is concerned, I will repeat the echocardiogram today for evaluation of the left ventricular systolic function. If things have improved, it may not be necessary to transfer the patient to another hospital or to the [place] for an LVAD evaluation at this time, depending on the ejection fraction and how he is doing clinically. He is still on the dobutamine. However, we will try to titrate this off, and also the Entresto has been started today as well as his prostate medications, which may also lower the blood pressure. He remains on Bumex 0.5 mg b.i.d. The laboratory data has remained stable. He is still slightly anemic, but otherwise has remained stable overall despite the large anterior myocardial infarction. IMPRESSION: Status post large anterior myocardial infarction with severe decrease in left ventricular systolic function. He maybe a candidate for an LVAD, but at this time, we will repeat the echocardiogram, and hopefully, be able to titrate the dobutamine off. He maybe able to maintain pressures on his own and have reasonable perfusion. If I would not able to titrate him off the medications and he may be a candidate to have transfer to another facility for an LVAD evaluation, but however, if he does well and the ejection fraction seems to have improved somewhat, most likely he will be able to escape an LVAD implantation at this time, and he would still need to have a LifeVest unless ejection fraction has significantly improved, hopefully, this will be the case, but it is unlikely he would have an ejection fraction more than 35%, looking at the large anterior myocardial infarction that he suffered. Please refer to my notes for the remainder of the information. Job ID: [id number] [facility]
[2019-06-06] MEDS ORDERED: Sodium Chloride 0.9% 250 ML IVPB SCH (12:30)
[2019-06-06] MEDS: DOBUTamine 500 mg/250 ml 250 ML IVPB SCH (21:15)
[2019-06-06] MEDS: Atorvastatin Calcium 40 MG TAB PO SCH (23:15)
[2019-06-07 03:03] LABS: #Basophils 0.1 thou/uL (0.0-0.2); #Eosinphils 0.2 thou/uL (0.0-0.7); #Lymphocytes 1.9 thou/uL (1.20-3.40); #Monocytes 0.7 thou/uL (0.11-0.59); %Basophils 0.7 % (0.0-1.0); %Eosinophils 2.5 % (0.0-10.0); %Lymphocytes 24.1 % (21.0-51.0); %Monocytes 9.4 % (0.0-10.0); %Neutrophils 63.3 % (42.0-75.0); Hemoglobin 9.8 g/dL (14.0-18.0); Mean Corpuscular HGB CONC 35.1 g/dL (32.0-36.0); Mean Corpuscular Hemoglobin 33.8 pg (27.0-31.0); Mean Corpuscular Volume 96.2 fL (78.0-98.0); Mean Platelet Volume 7.1 fL (7.4-10.4); Platelet Count 312 thou/uL (130-400); RBC Distribution Width 12.3 % (11.5-14.5); Red Blood Cell (RBC) Count 2.89 mill/uL (4.70-6.10); White Blood Cell (WBC) Count 7.9 thou/uL (4.8-10.8)
[2019-06-07 03:25] LABS: Anion Gap 15 mmol/L (10-20); BUN (Urea Nitrogen) 17 mg/dL (8.4-25.7); Calc. Creatinine Clearance 92 mL/min (70-130); Calcium 8.2 mg/dL (7.8-10.44); Carbon Dioxide 21 mmol/L (23-31); Chloride 98 mmol/L (98-107); Estimated GFR-MDRD Greater than 90; Glucose 106 mg/dL (80-115); Magnesium 1.7 mg/dL (1.6-2.6); Potassium 3.7 mmol/L (3.5-5.1); Sodium 130 mmol/L (136-145)
--- NOTE | 2019-06-07 09:44 | PDOC.CPN ---
- Subjective Date: 06/07/19 Time: 08:30 Interval history: The pt seen and examined. No overnight events. No cardiac complaints. - Objective Allergies/Adverse Reactions: Allergies Allergy/AdvReac Type Severity Reaction Status Date / Time No Known Allergies Allergy Unverified 05/30/19 10:50 Visit Medications: Current Medications Acetaminophen/Codeine Phosphate (Tylenol #3) 1 tab PO Q4H PRN PRN Reason: PAIN (1-3) Acetaminophen/Codeine Phosphate (Tylenol #3) 2 tab PO Q4H PRN PRN Reason: PAIN (4-6) Last Admin: 06/01/19 18:04 Dose: 2 tab Aspirin (Ecotrin) 81 mg PO DAILY [facility] Last Admin: 06/06/19 08:35 Dose: 81 mg Atorvastatin Calcium (Lipitor) 40 mg PO HS [facility] Last Admin: 06/06/19 23:15 Dose: 40 mg Bumetanide (Bumex) 0.5 mg PO BID [facility] Last Admin: 06/06/19 22:58 Dose: Not Given Cyclobenzaprine HCl (Flexeril) 10 mg PO TID PRN PRN Reason: Muscle Spasm Last Admin: 06/01/19 21:05 Dose: 10 mg Enoxaparin Sodium (Lovenox) 30 mg SC 0900,2100 [facility] Last Admin: 06/06/19 23:14 Dose: 30 mg Finasteride (Proscar) 5 mg PO DAILY [facility] Last Admin: 06/06/19 08:35 Dose: 5 mg Dobutamine HCl/Dextrose (Dobutamine 500 Mg/250 Ml) 250 mls @ 12.195 mls/hr IVPB INF [facility]; Protocol Last Admin: 06/06/19 21:15 Dose: 250 mls Magnesium Hydroxide (Milk Of Magnesium) 30 ml PO Q12H PRN PRN Reason: Constipation Morphine Sulfate (Morphine) 2 mg SLOW IVP Q4H PRN PRN Reason: CHEST PAIN (4-6) Last Admin: 05/30/19 14:39 Dose: 2 mg Ondansetron HCl (Zofran Odt) 4 mg PO Q6H PRN PRN Reason: Nausea/Vomiting Last Admin: 06/05/19 18:02 Dose: 4 mg Potassium Chloride (K-Dur) 20 meq PO BID [facility] Last Admin: 06/06/19 23:15 Dose: 20 meq Sodium Chloride (Flush - Normal Saline) 10 ml IVF PRN PRN PRN Reason: Saline Flush Sodium Chloride (Flush - Normal Saline) 10 ml IVF Q12HR [facility] Last Admin: 06/06/19 23:16 Dose: 10 ml Ticagrelor (Brilinta) 90 mg PO BID [facility] Last Admin: 06/06/19 23:15 Dose: 90 mg Zolpidem Tartrate (Ambien) 5 mg PO HS PRN PRN Reason: Insomnia Vital Signs & Weight: Vital Signs Temp 06/07/19 07:20 98.2 F 06/07/19 05:20 98.3 F 06/06/19 23:25 98.5 F Weight 160 lb 11.472 oz - Quality Measures CV meds: Beta Natalya: Yes, SHENG/ARB: No (BP low. start entresto when BP stable.) , Statin: Yes, ASA: Yes - Physical Exam General: alert & oriented x3 HEENT: mucus membranes moist Neck: supple neck Cardiac: regular rate and rhythm, S1/S2 Lungs: clear to auscultation Skin: clear Musculoskeletal: normal range of motion - Labs Result Diagrams: 06/07/19 02:54 06/07/19 02:54 Troponin/CKMB CK-MB (CK-2) 256.5 ng/mL (0-6.6) H* 05/30/19 23:50 Troponin I 140.033 ng/mL (< 0.028) H* 05/30/19 23:50 - Telemetry Sinus rhythms and dysrhythmias: sinus rhythm - Assessment/Plan Assessment/Plan: 1. CAD with s/p PCI with BMS in prox LAD,large anterior AL and 50% stenosis in mid RCA - on Dobutamin 5mcg/kg/min. Statin, ASA, and Brilinta; Not on BBlocker due to Dobutamine. Stable. 2. Acute on Chronic Systolic HF with EF 20-25% on 06/06/2019 from EF 25-30% on 05/30/2019 - on Dobutamine; off BBlocker.On Bumax 0.5mg BID; When d/c dobutamine , will start Entresto. Possible Tx to [facility] in [place] for a bridge to LVAD ( Appreciate to Dr Alexis's input!); plan for PICC line placement 3. Ischemic CMY 4. Hx of CVA 5. HLD - On Statin 6. Elevated LFT 7. ETOH and Tobacco abuse - strongly recommend ETOH and Tobacco cessation. 8. Hypotension - stable at present. 9. BPH - Flomax is on hold MAR reviewed
--- NOTE | 2019-06-07 10:17 | PRG ---
DATE OF SERVICE: 06/07/2019 SERVICE: Advanced Heart Failure Consult. INTERVAL HISTORY: Please refer to my secondary note from yesterday. Mr. Amador dropped the blood pressure sometime after 10 or 11 o'clock yesterday morning. He was symptomatic. He had difficulty mentating. Apparently, went down to 70s. He required boluses of normal saline of 250 mL three times a day and increasing dobutamine to 5 mcg/kg per minute to stabilize. His blood pressure did come back up and afterwards he was alert and conversational and mentating well. Overnight, it was reported that his blood pressure average about 90. If you look in the records, it showed rate between 80s to 90s to 100, on average about 90. This morning, when I was talking to him his systolic blood pressure was 80 at one point, 91 at one point and 90 at another point. He said he was able to urinate without using Flomax. He did sleep with the head up. He did not complain of any severe shortness of breath. However, he said he had one bout of shortness of breath overnight. About midnight, he felt like he needed oxygen for a while, but then afterwards he felt better. REVIEW OF SYSTEMS: GENERAL: Energy is better than low blood pressure last night. He denies fever and chills. HEENT: There is no change in vision, hearing or swallowing. CARDIOVASCULAR: The patient denies chest pain or palpitations. Do not say anything about syncope. GI: He is able to eat. : He was able to urinate even without Flomax. MUSCULOSKELETAL: Able to walk in the morning but not so in the afternoon. There is no joint pain. INTEGUMENT: He did not complain of any skin breakdown. NEUROLOGIC: There is no focal deficit. PSYCHIATRIC: He is a bit anxious but not depressed. MEDICATIONS: His current medications are 1. Enoxaparin 30 mg subcutaneous for DVT prophylaxis. 2. Dobutamine currently running at 5 mcg/kg per minute. 3. Atorvastatin 40 mg daily. 4. Bumex is now on hold. I agree with that. 5. Aspirin 81 mg daily. 6. Ticagrelor which is Brilinta 90 mg b.i.d. 7. Potassium chloride 20 mEq twice per day. His only prostate medication is Proscar. His telemetry was reviewed. It did not show any concerning arrhythmias. PHYSICAL EXAMINATION: VITAL SIGNS: Heart rate 76, blood pressure 80/55, oxygen sat 97% on room air. It was recorded he was negative 600 mL for the last 24 hours, not sure it is actually true. GENERAL: He is alert and conversational, relaxed. HEENT: Show EOMI, PERRL. Oropharynx benign. There is no erythema or exudate. NECK: JVP is little more elevated today about 11 cm with positive hepatojugular reflux. LUNGS: There is increase in crackles at the left base. Little bit more than yesterday. HEART: Regular rate and rhythm, S1, S2, there is a little bit louder 2/6 holosystolic murmur near the 6th intercostal space closer to the axillary line. His PMI is a bit inferior and laterally displaced. ABDOMEN: Soft, nontender. Positive bowel sounds. EXTREMITIES: His lower extremity without edema. There is dorsalis pedis pulse bilaterally. Of note, there is a bruit in the right groin. LABORATORY DATA: His sodium has decreased a bit from 131, went down to 130. His creatinine is stable at 0.84. His BNP actually decreased a bit from 602 down to 488. The decrease in BNP likely reflection of the low blood pressure from yesterday. Fortunately, there is no change in the kidney function. ASSESSMENT: A 64-year-old gentleman, resides mostly likely now in AHA stage D heart failure with reduced ejection fraction. He seemed to need higher doses of dobutamine. This could be due to heart is a little worse or down regulation of beta one receptors. In either case, his heart is probably becoming a little worse. He is slightly volume up, but not terribly so. He is probably [place] Heart Association class 3B, combination of a little bit more elevated JVP, a little higher mitral murmur sound and sodium decreases slightly suggests that he is slightly volume up. There is a general agreement that we will try to get him on guideline directed medical therapy as much as possible because that will be the best outcome. However, with delayed revascularization of ST-elevation MT, his recovery is in question. Thus he may still require transfer to different location where definitive therapy can be done. RECOMMENDATIONS: 1. I agree with a trial with decreasing dobutamine down to 2.5 mcg/kg per minute to see if the patient can tolerate lower dose of dobutamine. If the patient has persistently drop of 5 mmHg in systolic blood pressure, he will need to go back on 5 mcg/kg per minute. If patient cannot tolerate lowering dobutamine, it is better to look for transfer to a center that can provide a definitive therapy such as left ventricular assisted device. I believe it is better to transfer while the patient is on minimal drip and relatively well and intact renal function. 2. The patient expressed a desire to go to the [facility] if that is possible. For his second choice, he will be closer to home that will be [facility] in [place]. Due to distance, transfer to [facility] for left ventricular assistive device and heart transplant will be difficult. However, if that is the only option, he has expressed a willingness to do so. 3. Please supplement potassium to keep it at 4 or better. 4. Please supplement magnesium to keep it at 2 or better. 5. If LVAD is implemented, this will most likely happen. He will be on LVAD for six months to qualify for heart transplant. Being at age 64 with relatively intact renal function and good functional baseline, he will be an excellent candidate of switching to a bridge to transplant. It has been a pleasure taking care of Mr. Amador. Thank you very much for the consult. Please call if you have any question. Job ID: [id number] [facility] CENTERScottie
[2019-06-07] MEDS: Potassium Chloride 20 MEQ TAB PO SCH ×2 (10:52→21:20)
[2019-06-07] MEDS: TICAGRELOR 90 MG TABLET PO SCH ×2 (10:52→21:21)
[2019-06-07] MEDS: Aspirin 81 mg Enteric Coated Tablet PO SCH (10:52)
[2019-06-07] MEDS: Bumetanide 1 MG TAB PO SCH ×2 (10:52→21:21)
[2019-06-07] MEDS: Finasteride 5 MG TAB PO SCH (10:52)
[2019-06-07] MEDS: Enoxaparin Sodium 30 MG/0.3 ML SYRINGE SC SCH ×2 (10:53→21:29)
[2019-06-07] MEDS: FLU VACC QS2019-20(6MOS UP)/PF 60 MCG/0.5 ML SYRINGE IM ONE (11:26)
--- NOTE | 2019-06-07 16:56 | PDOC.HOSPP ---
- Subjective Encounter Date: 06/07/19 Encounter Time: 12:00 Subjective: awake, follows verbal stimuli family at bedside no sob, ambulated entire hallway with cardiac rehab this am no chest pain moves all extremities, no headache - Objective Vital Signs & Weight: Vital Signs (12 hours) Temp Pulse Ox 06/07/19 15:26 98.5 F 06/07/19 11:21 98.2 F 06/07/19 08:00 98 06/07/19 07:20 98.2 F 06/07/19 05:20 98.3 F Weight Weight 160 lb 11.472 oz Most Recent Monitor Data Heart Rate from ECG 83 NIBP 99/44 NIBP BP-Mean 62 Respiration from ECG 19 SpO2 96 I&O: 06/06/19 06/07/19 06/08/19 06:59 06:59 06:59 Intake Total 1346.1 700 Output Total 2525 1300 Balance -1178.9 -600 Result Diagrams: 06/07/19 02:54 06/07/19 02:54 Hospitalist ROS - Medication Medications: Active Medications Generic Name Dose Route Start Last Admin Trade Name Freq PRN Reason Stop Dose Admin Acetaminophen/Codeine Phosphate 2 tab 05/30/19 11:14 06/01/19 18:04 Tylenol #3 PO 2 tab Q4H PRN Administration PAIN (4-6) Aspirin 81 mg 05/31/19 09:00 06/07/19 10:52 Ecotrin PO 81 mg DAILY [facility] Administration Atorvastatin Calcium 40 mg 05/30/19 21:00 06/06/19 23:15 Lipitor PO 40 mg HS [facility] Administration Bumetanide 0.5 mg 06/05/19 21:00 06/07/19 10:52 Bumex PO 0.5 mg BID [facility] Administration Cyclobenzaprine HCl 10 mg 05/31/19 08:35 06/01/19 21:05 Flexeril PO 10 mg TID PRN Administration Muscle Spasm Enoxaparin Sodium 30 mg 06/01/19 09:00 06/07/19 10:53 Lovenox SC 30 mg 0900,2100 [facility] Administration Finasteride 5 mg 06/04/19 09:00 06/07/19 10:52 Proscar PO 5 mg DAILY [facility] Administration Dobutamine HCl/Dextrose 250 mls @ 12.195 mls/hr 06/03/19 11:30 06/06/19 21:15 Dobutamine 500 Mg/250 Ml IVPB 250 mls INF [facility] Administration Protocol 5 MCG/KG/MIN Morphine Sulfate 2 mg 05/30/19 11:18 05/30/19 14:39 Morphine SLOW IVP 2 mg Q4H PRN Administration CHEST PAIN (4-6) Ondansetron HCl 4 mg 05/31/19 09:42 06/05/19 18:02 Zofran Odt PO 4 mg Q6H PRN Administration Nausea/Vomiting Potassium Chloride 20 meq 06/05/19 09:00 06/07/19 10:52 K-Dur PO 20 meq BID [facility] Administration Sodium Chloride 10 ml 05/30/19 21:00 06/07/19 10:53 Flush - Normal Saline IVF 10 ml Q12HR [facility] Administration Ticagrelor 90 mg 05/30/19 21:00 06/07/19 10:52 Brilinta PO 90 mg BID [facility] Administration - Exam General Appearance: NAD, awake alert Eye: PERRL, anicteric sclera ENT: no oropharyngeal lesions, moist mucosa Neck: supple, JVD Heart: RRR, no rubs, murmur present Respiratory: no wheezes, no rales Gastrointestinal: soft, non-tender, non-distended, normal bowel sounds Extremities: no cyanosis, no edema Neurological: cranial nerve grossly intact, no focal deficits Psychiatric: normal affect, A&O x 3 Hosp A/P (1) Cardiogenic shock Code(s): R57.0 - CARDIOGENIC SHOCK Status: Acute (2) ST elevation (STEMI) myocardial infarction involving left anterior descending coronary artery Code(s): I21.02 - STEMI INVOLVING LEFT ANTERIOR DESCENDING CORONARY ARTERY Status: Acute (3) CAD (coronary artery disease) Code(s): I25.10 - ATHSCL HEART DISEASE OF [place] CORONARY ARTERY W/O ANG PCTRS Status: Chronic Qualifiers: Coronary Disease-Associated Artery/Lesion type: [place]all artery [place] vs. transplanted heart: marshall heart Associated angina: angina presence unspecified Qualified Code(s): I25.10 - Atherosclerotic heart disease of [place] coronary artery without angina pectoris (4) Alcohol abuse Code(s): F10.10 - ALCOHOL ABUSE, UNCOMPLICATED Status: Chronic (5) BPH (benign prostatic hyperplasia) Code(s): N40.0 - BENIGN PROSTATIC HYPERPLASIA WITHOUT LOWER URINRY TRACT SYMP Status: Chronic Qualifiers: Lower urinary tract symptom presence: symptoms present (6) Cardiomyopathy, ischemic Code(s): I25.5 - ISCHEMIC CARDIOMYOPATHY Status: Chronic (7) Tobacco abuse disorder Code(s): Z72.0 - TOBACCO USE Status: Chronic - Plan is on dobutamine drip, is being closely monitored by beta blockers will be added once he is off dobutamine drip sbp around 90's and stable renal function is stable he is ambulating well will need life vest before dc on asp, lipitor, brillinta and lovenox 30mg sc bid s/p bare metal stent to LAD, has rca stenosis but stable now will f/u
[2019-06-07] MEDS: DOBUTamine 500 mg/250 ml 250 ML IVPB SCH (17:01)
[2019-06-07] MEDS: Atorvastatin Calcium 40 MG TAB PO SCH (21:20)
[2019-06-08 06:19] LABS: Anion Gap 13 mmol/L (10-20); BUN (Urea Nitrogen) 13 mg/dL (8.4-25.7); Calc. Creatinine Clearance 93 mL/min (70-130); Calcium 8.5 mg/dL (7.8-10.44); Carbon Dioxide 22 mmol/L (23-31); Chloride 100 mmol/L (98-107); Estimated GFR-MDRD Greater than 90; Glucose 99 mg/dL (80-115); Potassium 4.1 mmol/L (3.5-5.1); Sodium 131 mmol/L (136-145)
[2019-06-08] MEDS: Bumetanide 1 MG TAB PO SCH ×2 (08:28→21:25)
[2019-06-08] MEDS: Aspirin 81 mg Enteric Coated Tablet PO SCH (08:28)
[2019-06-08] MEDS: Potassium Chloride 20 MEQ TAB PO SCH ×2 (08:29→21:25)
[2019-06-08] MEDS: Enoxaparin Sodium 30 MG/0.3 ML SYRINGE SC SCH ×2 (08:29→21:26)
[2019-06-08] MEDS: Finasteride 5 MG TAB PO SCH (08:29)
[2019-06-08] MEDS: TICAGRELOR 90 MG TABLET PO SCH ×2 (08:30→21:25)
--- NOTE | 2019-06-08 09:29 | PRG ---
DATE OF SERVICE: 06/08/2019 INTERVAL HISTORY: Mr. Amador did not feel very well yesterday during the day. Cardiac Rehab came by twice in the morning. Once about 9 and once about 11. Both times, he felt too weak, not enough to walk. He also had a bout of pressure-like chest pain about 10:00 a.m. That lasted about 40 minutes. It went away without intervention. He did state that he felt in general, a little bit better overall after all events in the afternoon. He was able to eat his supper. He said he had some slight increase in appetite. Dobutamine was titrated down from 5 mcg to 4 mcg/kg/min. His blood pressure did decrease some. He had an overnight low systolic blood pressure of 79. There were several blood pressures in the low 80s. However, his blood pressure did come up this morning. REVIEW OF SYSTEMS: GENERAL: He believes that he is little bit better today in terms of energy level. He denies fever and chills. HEENT: There is no change in vision, hearing or swallowing. CARDIOVASCULAR: Please see HPI. However, he denied having PND. GI: See HPI. : He is able to urinate without help of Flomax. MUSCULOSKELETAL: He did not walk. INTEGUMENT: He did not complain of any new skin breakdown. NEUROLOGIC: There are no focal deficits. PSYCHIATRIC: He is not depressed, but is concerned about future. MEDICATIONS: His active cardiac related medications include, 1. Enoxaparin 30 mg subcu for DVT prophylaxis. 2. Dobutamine currently at 4 mcg/kg/min. 3. Atorvastatin 40 mg p.o. at bedtime. This should be increased to 80 mg at bedtime. 4. Bumex 0.5 mg b.i.d. 5. Aspirin 81 mg daily. 6. Brilinta 90 mg b.i.d. 7. Potassium chloride supplement at 20 mEq twice per day. PHYSICAL EXAMINATION: VITAL SIGNS: Heart rates between high 60 and low 70, blood pressure 88/54, his saturation 97% on room air. GENERAL: He is alert and conversational and relaxed. However, he becomes short of breath when he tries to maintain conversation. Attempt at speaking a long sentence will cause shortness of breath. HEENT: Showed EOMI. PERRL. Oropharynx benign. There is no concerning erythema. No exudate. NECK: His JVP is about 9 cm and positive hepatic jugular reflex, this is less than yesterday. PULMONARY: Good air movement bilateral upper lung jacobs. There are still bilateral basilar crackles. However, his left lower crackles, which are at a higher level, are now less than yesterday. HEART: Regular rate and rhythm, S1, S2. Very faint barely audible 1/6 holosystolic murmur, distal lateral to the apex. This is a lot less than yesterday, his PMI is inferiorly and laterally displaced at about sixth intercostal space lateral to the midclavicular line. ABDOMEN: Soft, nontender. Positive bowel sounds. EXTREMITIES: Lower extremities; today, is warm and well perfused. Positive dorsalis pedal pulses bilaterally. LABORATORY VALUES: His sodium has increased from 130 to 131, potassium is good at 4.1. His BNP has increased slightly from 488 to 663, this is expected since his blood pressure did increase from the day before. ASSESSMENT: A 64-year-old gentleman, now appears to be more likely to be in [place] Heart Association Stage D heart failure with reduced ejection fraction. This is due to recent myocardial infarction. He had over 24-hour delay in revascularization of an ST-elevation MA, thus making recovery less likely. He appears to be euvolemic today. The chest pressure and pain from yesterday could be due to his heart failure. It can cause these symptoms. Heart failure can also cause episodic dips in systolic blood pressure due to periods of low stroke volume. At this point, we needed to know, if he can actually function at 4 mcg/kg of dobutamine. It would be good to see, if he can walk with us today. I would classify him as at a [place] Heart Association Class 3B functional heart failure, but the best overall plan is still to titrate off dobutamine and put him on oral ; however, with him dropping blood pressure down to the high 70s to low 80s overnight and not able to walk yesterday, it is doubtful that he can be titrated off dobutamine. RECOMMENDATIONS: 1. Place PICC as planned. This will help with infusion of multiple medications as needed, This would also prevent dobutamine infiltration of soft tissue due to PIV. 2. Keep dobutamine at 4 mcg/kg/min. 3. I will ask Cardiac Rehab to return to try to walk the patient at 4 mcg/kg/ min to see, if he is able to walk. If he is not able to walk or unable to really carry on daily activities, then this tells us that he will probably likely need an LVAD. We can attempt to manage his dobutamine as outpatient; however, the outcomes with chronic dobutamine is much worse than Milrinone. At his current condition, I do not believe that we can switch him from dobutamine to Milrinone. 4. Please trend troponin I for next 2 to 3 days for prognostic value. 5. Please increase his atorvastatin to 80 mg at bedtime. 6. Keep Bumex at 0.5 mg twice per day. This seemed to be able to keep him at the euvolemic state. 7. We will give the social media intern's number from [place], so the family can be in conversation with them to see what is possible. 8. We will explore possibility of a transfer to [facility] for definitive therapy. The possible progressions are first, [facility] makes a formal referral. Then, the [facility] accepts the patient. Then, [facility] will arrange for their transport for both the patient and his . If LVAD is implanted, the patient will stay at [place] for about 6 to 8 weeks. After that, the patient will be discharged and sent back to [place]. Afterwards, the patient will need to stay healthy and qualify for bridge to transplant at 6 months. He needs to demonstrate being free of smoking and drug use with multiple urine test (i.e. cotinine). At that point, if he has a sufficient insurance, he can choose whichever organization or he can stay with the [facility] for heart transplant. If he chooses to stay with [facility] for heart transplant, they will not bring him back to [place] when he is high enough on the list. At that point, [facility] will provide housing to his too. 9. Preliminary insurance screen showed that he is not acceptable to neither [facility] nor [facility] in [place]. It has been a pleasure taking care of Mr. Noam Amador. Thank you very much for the consult. Please give me a call, if you have any questions. Job ID: [id number] [facility] CENTERScottie
[2019-06-08 11:38] LABS: Troponin I 1.155 ng/mL (< 0.028)
--- NOTE | 2019-06-08 12:17 | PRG ---
DATE OF SERVICE: 06/08/2019 SUBJECTIVE: Mr. Amador has remained stable overnight. He feels good this morning. He has been sitting up in a chair. Blood pressure at this time is over 100 systolically. He denies any shortness of breath. He was somewhat short of breath yesterday evening when I saw him. Apparently, he has still been maintained on his diuretics. According to the computer, it looks like he has been receiving these medications. He does have prostate problems and has a small amount of urine output each time, but does appear to be relatively euvolemic at this time. His chest was relatively clear. He did have very right basilar rales this morning. Cardiac, he still continues to have a regular rate and sinus rhythm and no significant changes were noted on the telemetry. He has had no further arrhythmias. OBJECTIVE: VITAL SIGNS: His vital signs otherwise this morning; blood pressure at 7 o'clock this morning was 102/55. When I was in the room, it went as high as 112 systolically. Heart rates in the 70s and shows a sinus rhythm. Respiratory rate is about 18 to 20. O2 saturations are 96%. HEENT: Does show some mild elevation of JVP. CHEST: Shows some right basilar rales. CARDIOVASCULAR: Reveals a regular rate and rhythm. I cannot hear any significant murmurs. ABDOMEN: Soft and nontender. EXTREMITIES: Show no clubbing, cyanosis, or edema. NEUROLOGIC: He is fully intact. LABORATORY DATA: Shows a WBC of 7.9, hemoglobin 9.8, hematocrit 27.8, platelet count was 312,000. His sodium was 131, potassium was 4.1, carbon dioxide was 22, chloride was 100, BUN was well controlled at 13 with a creatinine 0.84, glucose is 99. His BNP was slightly elevated today at 662. This may be a slight indication he has heart failure; however, he did receive one dose of Entresto, which could affect this slightly, but maybe not that much once the BNP would be elevated with the Entresto. Otherwise, he has remained stable. His present medications at this time. He is still on dobutamine at 4 mcg/kg/minute. He is on atorvastatin 40 mg daily, Brilinta 90 mg b.i.d. He is also taking aspirin 81 mg a day, subcu Lovenox for DVT prophylaxis. He is on Proscar 5 mg a day, potassium 20 mEq b.i.d., and Bumex 0.5 mg b.i.d., the dose appears to have been given yesterday as well as again this morning, but I believe the order previously had said to hold this medication, but uncertain I will need to ask the nursing staff why not this has actually been held or not. IMPRESSION: 1. Congestive heart failure, status post large anterior myocardial infarction with ischemic cardiomyopathy, status post angioplasty and stent placement to the left anterior descending artery, but still severe decrease in left ventricular systolic function, ejection fraction of 20% to 25%. He is actually remaining relatively stable better than anticipated. We have been in discussion with the [place] as far as transferring either to [facility] or to the [place] for possible LVAD implantation. Hopefully, we will be able to continue to decrease the inotropes and with his dobutamine if we can taper this down, it will be obviously better for the patient if he can maintain without having congestive heart failure. 2. History of tobacco abuse and alcohol use. He assures us that he will completely stop this. He does not have any desire to continue smoking or to use alcohol. 3. History of dyslipidemia. We will continue his statin medications. 4. Hypertension, which is associated with his cardiomyopathy and severe decrease in left ventricular systolic function. 5. History of benign prostatic hypertrophy. He still is on Proscar, but the urination, he does have small amount, since he has to go almost every hour, we will try not to replace the [place] catheter in this gentleman, but should become having too much urinary retention, this may become necessary because I do not believe at this time he is going to be able to tolerate both of those medications for the prostate. We will continue to be in discussion with the [place] with the help of Dr. Alexis to see if the patient can be transferred for better assistance with his congestive heart failure and possible LVAD placement, then as a bridge to transplant. Job ID: [id number]
--- NOTE | 2019-06-08 12:49 | PDOC.HOSPP ---
- Subjective Encounter Date: 06/08/19 Encounter Time: 09:35 Subjective: no sob or chest pain is sitting on bed, at bedside - Objective Vital Signs & Weight: Vital Signs (12 hours) Temp Pulse Ox 06/08/19 07:48 98 06/08/19 04:10 98.1 F Weight Weight 158 lb 12.8 oz Most Recent Monitor Data Heart Rate from ECG 74 NIBP 95/53 NIBP BP-Mean 67 Respiration from ECG 26 SpO2 95 I&O: 06/07/19 06/08/19 06/09/19 06:59 06:59 06:59 Intake Total 700 1613 Output Total 1300 1750 Balance -600 -137 Result Diagrams: 06/07/19 02:54 06/08/19 05:34 Hospitalist ROS - Medication Medications: Active Medications Generic Name Dose Route Start Last Admin Trade Name Freq PRN Reason Stop Dose Admin Acetaminophen/Codeine Phosphate 2 tab 05/30/19 11:14 06/01/19 18:04 Tylenol #3 PO 2 tab Q4H PRN Administration PAIN (4-6) Aspirin 81 mg 05/31/19 09:00 06/08/19 08:28 Ecotrin PO 81 mg DAILY SHARIF Administration Atorvastatin Calcium 40 mg 05/30/19 21:00 06/07/19 21:20 Lipitor PO 40 mg HS SHARIF Administration Bumetanide 0.5 mg 06/05/19 21:00 06/08/19 08:28 Bumex PO 0.5 mg BID SHARIF Administration Cyclobenzaprine HCl 10 mg 05/31/19 08:35 06/01/19 21:05 Flexeril PO 10 mg TID PRN Administration Muscle Spasm Enoxaparin Sodium 30 mg 06/01/19 09:00 06/08/19 08:29 Lovenox SC 30 mg 0900,2100 SHARIF Administration Finasteride 5 mg 06/04/19 09:00 06/08/19 08:29 Proscar PO 5 mg DAILY SHARIF Administration Dobutamine HCl/Dextrose 250 mls @ 12.195 mls/hr 06/03/19 11:30 06/07/19 17:01 Dobutamine 500 Mg/250 Ml IVPB 250 mls INF SHARIF Administration Protocol 5 MCG/KG/MIN Morphine Sulfate 2 mg 05/30/19 11:18 05/30/19 14:39 Morphine SLOW IVP 2 mg Q4H PRN Administration CHEST PAIN (4-6) Ondansetron HCl 4 mg 05/31/19 09:42 06/05/19 18:02 Zofran Odt PO 4 mg Q6H PRN Administration Nausea/Vomiting Potassium Chloride 20 meq 06/05/19 09:00 06/08/19 08:29 K-Dur PO 20 meq BID SHARIF Administration Sodium Chloride 10 ml 05/30/19 21:00 06/08/19 08:29 Flush - Normal Saline IVF 10 ml Q12HR SHARIF Administration Ticagrelor 90 mg 05/30/19 21:00 06/08/19 08:30 Brilinta PO 90 mg BID SHARIF Administration - Exam General Appearance: NAD, awake alert Eye: PERRL, anicteric sclera ENT: no oropharyngeal lesions, moist mucosa Neck: supple, no JVD Heart: RRR, no murmur Respiratory: no wheezes, no rales Gastrointestinal: soft, non-tender, non-distended, normal bowel sounds Extremities: no cyanosis, no edema Neurological: cranial nerve grossly intact, no focal deficits Psychiatric: normal affect, A&O x 3 Hosp A/P (1) Cardiogenic shock Code(s): R57.0 - CARDIOGENIC SHOCK Status: Acute (2) ST elevation (STEMI) myocardial infarction involving left anterior descending coronary artery Code(s): I21.02 - STEMI INVOLVING LEFT ANTERIOR DESCENDING CORONARY ARTERY Status: Acute (3) CAD (coronary artery disease) Code(s): I25.10 - ATHSCL HEART DISEASE OF [place] CORONARY ARTERY W/O ANG PCTRS Status: Chronic Qualifiers: Coronary Disease-Associated Artery/Lesion type: [place] artery [place] vs. transplanted heart: [place] heart Associated angina: angina presence unspecified Qualified Code(s): I25.10 - Atherosclerotic heart disease of [place] coronary artery without angina pectoris (4) Alcohol abuse Code(s): F10.10 - ALCOHOL ABUSE, UNCOMPLICATED Status: Chronic (5) BPH (benign prostatic hyperplasia) Code(s): N40.0 - BENIGN PROSTATIC HYPERPLASIA WITHOUT LOWER URINRY TRACT SYMP Status: Chronic Qualifiers: Lower urinary tract symptom presence: symptoms present (6) Cardiomyopathy, ischemic Code(s): I25.5 - ISCHEMIC CARDIOMYOPATHY Status: Chronic (7) Tobacco abuse disorder Code(s): Z72.0 - TOBACCO USE Status: Chronic - Plan is on dobutamine drip taper, is being closely monitored by beta blockers will be added once he is off dobutamine drip sbp around 90's to 100's and stable renal function is stable he is ambulating well will need life vest before dc on asp, lipitor, brillinta, bumex and lovenox 30mg sc bid s/p bare metal stent to LAD, has rca stenosis but stable now will f/u
--- NOTE | 2019-06-08 14:20 | PDOC.PALCO ---
Palliative Care Consult - Consult Details Requesting Physician: Dr Mosher Reason for Consult: goals of care, complex decision-making Family Members Present: Paitient - Pertinent HPI 64 year old male with significant know cardiac disease history who presented to the emergency room after onset of angina at home when he was getting dressed. He thought maybe it was indigestion and took antacids that offered no relief. 911 was called and patient was taken to the emergency room, with pain progressing to a 9/10. Taken to the labor delivery rn and noted to have an anterior myocardial infarction. Admitted for management. Patient has been identified as needing a LVAD while he awaits a heart transplant. - Pertinent PMH Hypertension, CAD, CHF, HDL - Social History Smoking Status: Current every day smoker Smoking: greater than 1 pack/day Alcohol Use: daily Drug Use History: none Living Situation: - Medications MAR Reviewed: Yes - Allergies Allergies/Adverse Reactions: Allergies Allergy/AdvReac Type Severity Reaction Status Date / Time No Known Allergies Allergy Unverified 05/30/19 10:50 - Subjective Sitting in chair, at bedside. ROS: 10 point review negative at this time - Objective Vital Signs: Vital Signs - Most Recent Temp Pulse Resp BP Pulse Ox 98.1 F 75 112/62 98 06/08/19 04:10 06/06/19 08:51 06/06/19 08:51 06/08/19 07:48 - Physical Exam Constitutional: NAD HEENT: moist MMs, EOMI Respiratory: unlabored breathing Cardiovascular: RRR Neurological: moves all 4 limbs Psychiatric: normal affect, A&O x 3 Skin: normal turgor, cap refill <2 seconds - Problem List (1) Palliative care encounter Code(s): Z51.5 - ENCOUNTER FOR PALLIATIVE CARE Current Visit: Yes Status: Acute (2) Acute on chronic systolic heart failure Code(s): I50.23 - ACUTE ON CHRONIC SYSTOLIC (CONGESTIVE) HEART FAILURE Current Visit: Yes Status: Acute (3) Cardiogenic shock Code(s): R57.0 - CARDIOGENIC SHOCK Current Visit: Yes Status: Acute (4) ST elevation (STEMI) myocardial infarction involving left anterior descending coronary artery Code(s): I21.02 - STEMI INVOLVING LEFT ANTERIOR DESCENDING CORONARY ARTERY Current Visit: Yes Status: Acute (5) Alcohol abuse Code(s): F10.10 - ALCOHOL ABUSE, UNCOMPLICATED Current Visit: Yes Status: Chronic (6) Tobacco abuse disorder Code(s): Z72.0 - TOBACCO USE Current Visit: Yes Status: Chronic - Plan/Recommendations Plan: Patient deciding about going to the [facility] in [place] for his LVAD, will need to be there for 30 days. Will be placed on the heart transplant list. Discussed smoking cessation. Patient and to have conversation with Jaleel Beasley RNscraper tender and A Martin button spindler Failure to discuss options in relation to extensive cardiovascular disease and heart failure. Therapeutic listening and support provided for both patient and [20] minutes spent on this encounter with >50% of the time in counseling and coordination of care. Thank you for this very appropriate consult.
--- NOTE | 2019-06-08 15:03 | SPC ---
PROCEDURE: Peripheral insertion of central catheter. INDICATION: IV therapy. FINDINGS: A dual lumen 5 [place] PICC line was placed into the left basilic vein using ultrasound guidance and f luoroscopic confirmation. The tip is positioned in the SVC. PROCEDURE NOTE: Left upper extremity prepped and draped in sterile manner. Ultrasound used to assess the veins. The l eft basilic vein distal humerus was chosen for puncture. Local anesthesia was administered. This vein was punctured under ultrasound guidance with micropuncture technique. Wire was advanced into the vei n and tip of the wire was positioned in the SVC. The catheter length was then measured and cut. Sheat h was placed over the wire. Catheter was advanced over the wire. Peel-away sheath removed. Wire remov ed. The catheter was flushed and secured with sterile dressing. There were no problems or complicatio ns. POS: OFF
[2019-06-08 15:15] VITALS: BMI 22.1
[2019-06-08] MEDS: Atorvastatin Calcium 40 MG TAB PO SCH (21:25)
[2019-06-09] MEDS: DOBUTamine 500 mg/250 ml 250 ML IVPB SCH (01:30)
[2019-06-09 06:26] LABS: Anion Gap 12 mmol/L (10-20); BUN (Urea Nitrogen) 14 mg/dL (8.4-25.7); Calc. Creatinine Clearance 91 mL/min (70-130); Calcium 8.7 mg/dL (7.8-10.44); Carbon Dioxide 23 mmol/L (23-31); Chloride 100 mmol/L (98-107); Estimated GFR-MDRD Greater than 90; Glucose 97 mg/dL (80-115); Sodium 131 mmol/L (136-145)
[2019-06-09 07:46] VITALS: TEMP 98.4
[2019-06-09] MEDS: Aspirin 81 mg Enteric Coated Tablet PO SCH (08:21)
[2019-06-09] MEDS: Bumetanide 1 MG TAB PO SCH (08:21)
[2019-06-09] MEDS: Enoxaparin Sodium 30 MG/0.3 ML SYRINGE SC SCH (08:21)
[2019-06-09] MEDS: Potassium Chloride 20 MEQ TAB PO SCH (08:22)
[2019-06-09] MEDS: Finasteride 5 MG TAB PO SCH (08:22)
[2019-06-09] MEDS: TICAGRELOR 90 MG TABLET PO SCH (08:23)
--- NOTE | 2019-06-09 09:01 | PDOC.CPN ---
- Subjective Date: 06/09/19 Time: 08:00 - Review of Systems General: reports: fever/chills Respiratory: reports: cough, shortness of breath Cardiovascular: reports: chest pain, edema Gastrointestinal: reports: nausea Musculoskeletal: reports: pain - Objective Allergies/Adverse Reactions: Allergies Allergy/AdvReac Type Severity Reaction Status Date / Time No Known Allergies Allergy Unverified 05/30/19 10:50 Visit Medications: Current Medications Acetaminophen/Codeine Phosphate (Tylenol #3) 1 tab PO Q4H PRN PRN Reason: PAIN (1-3) Acetaminophen/Codeine Phosphate (Tylenol #3) 2 tab PO Q4H PRN PRN Reason: PAIN (4-6) Last Admin: 06/01/19 18:04 Dose: 2 tab Aspirin (Ecotrin) 81 mg PO DAILY [facility] Last Admin: 06/09/19 08:21 Dose: 81 mg Atorvastatin Calcium (Lipitor) 40 mg PO HS [facility] Last Admin: 06/08/19 21:25 Dose: 40 mg Bumetanide (Bumex) 0.5 mg PO BID [facility] Last Admin: 06/09/19 08:21 Dose: 0.5 mg Cyclobenzaprine HCl (Flexeril) 10 mg PO TID PRN PRN Reason: Muscle Spasm Last Admin: 06/01/19 21:05 Dose: 10 mg Enoxaparin Sodium (Lovenox) 30 mg SC 0900,2100 [facility] Last Admin: 06/09/19 08:21 Dose: 30 mg Finasteride (Proscar) 5 mg PO DAILY [facility] Last Admin: 06/09/19 08:22 Dose: 5 mg Dobutamine HCl/Dextrose (Dobutamine 500 Mg/250 Ml) 250 mls @ 8.537 mls/hr IVPB INF [facility]; Protocol Last Admin: 06/09/19 01:30 Dose: 250 mls Magnesium Hydroxide (Milk Of Magnesium) 30 ml PO Q12H PRN PRN Reason: Constipation Morphine Sulfate (Morphine) 2 mg SLOW IVP Q4H PRN PRN Reason: CHEST PAIN (4-6) Last Admin: 05/30/19 14:39 Dose: 2 mg Ondansetron HCl (Zofran Odt) 4 mg PO Q6H PRN PRN Reason: Nausea/Vomiting Last Admin: 06/05/19 18:02 Dose: 4 mg Potassium Chloride (K-Dur) 20 meq PO BID [facility] Last Admin: 06/09/19 08:22 Dose: 20 meq Sodium Chloride (Flush - Normal Saline) 10 ml IVF PRN PRN PRN Reason: Saline Flush Sodium Chloride (Flush - Normal Saline) 10 ml IVF Q12HR [facility] Last Admin: 06/09/19 08:36 Dose: 10 ml Ticagrelor (Brilinta) 90 mg PO BID [facility] Last Admin: 06/09/19 08:23 Dose: 90 mg Zolpidem Tartrate (Ambien) 5 mg PO HS PRN PRN Reason: Insomnia Vital Signs & Weight: Vital Signs Temp Pulse Ox 06/09/19 07:45 98.4 F 06/09/19 04:11 98 06/09/19 03:55 99.6 F 06/08/19 23:38 99.2 F Admit Weight 179 lb 3.773 oz Weight 156 lb 3.2 oz - Quality Measures CV meds: Beta Natalya: No (BP not tolerating yet), SHENG/ARB: No (BP low. start entresto when BP stable.), Statin: Yes, ASA: Yes - Physical Exam Cardiac: regular rate and rhythm Lungs: other (right basilar rales.) Neuro: grossly intact Abdomen: unremarkable Extremities: no edema - Labs Result Diagrams: 06/07/19 02:54 06/09/19 05:30 Troponin/CKMB CK-MB (CK-2) 256.5 ng/mL (0-6.6) H* 05/30/19 23:50 Troponin I 1.155 ng/mL (< 0.028) H* 06/08/19 05:34 - Telemetry Sinus rhythms and dysrhythmias: sinus rhythm - Assessment/Plan Assessment/Plan: 1. CAD with s/p PCI with BMS in prox LAD,large anterior KS and 50% stenosis in mid RCA - on Dobutamin 4mcg/kg/min. Statin, ASA, and Brilinta; Not on BBlocker due to Dobutamine. Stable. CHF class III 2. Acute on Chronic Systolic HF with EF 20-25% on 06/06/2019 from EF 25-30% on 05/30/2019 - on Dobutamine; off BBlocker.On Bumax 0.5mg BID; When d/c dobutamine , will start Entresto. Tx to [facility] in [place] this AM for a bridge to LVAD ( Appreciate to Dr Alexis's input!); PICC line placed 3. Ischemic CMY 4. Hx of CVA 5. HLD - On Statin 6. Elevated LFT 7. ETOH and Tobacco abuse - strongly recommend ETOH and Tobacco cessation. 8. Hypotension - stable at present. 9. BPH - Flomax is on hold MAR reviewed
--- NOTE | 2019-06-09 10:19 | PRG ---
DATE OF SERVICE: 06/09/2019 SERVICE: Advanced Heart Failure Service. INTERVAL HISTORY: Mr. Amador had a good day yesterday. He was able to go downstairs for implantation of PICC. He went through the procedure without problems. However, he was not able to walk yesterday. The dobutamine was titrated down to 3 mcg/kg per minute at early evening yesterday. Overnight, his blood pressure ranged between 83 to 118 with average in the low 90s. He had a restless night. He said he was unable to truly sleep well, but he did not really endorse true PND. There were many conversations at the medical level and the patient and family level with the [facility] yesterday. At this point, I think Mr. Amador and his have really set their hopes on getting a transfer to [facility]. Currently [facility] is awaiting for a bed opening in the ICU. As soon as that is available, the patient will likely to be transported to [facility] and onwards through air ambulance service with the medical team on board to [facility]. REVIEW OF SYSTEMS: GENERAL: He believes he may be a little bit better today. He denies fevers and chills. HEENT: There is no change in vision, hearing, or swallowing. CARDIOVASCULAR: He denies palpitations and syncope. GI: He seemed to be able to eat and he does not have diarrhea. : He is able to urinate with the help of Flomax. MUSCULOSKELETAL: He was not able to walk yesterday. INTEGUMENT: He did not complain of any skin breakdown. NEUROLOGIC: There is no focal deficit. PSYCHIATRIC: He is not depressed, but he and his really have set their hopes on good transfer to [place] to get definitive therapy. His current active cardiac related medications include: 1. Enoxaparin 30 mg subcu b.i.d. for DVT prophylaxis. 2. Dobutamine at 3.5 mcg/kg per minute IV gtt. 3. Atorvastatin 40 mg p.o. at bedtime. 4. Bumex 0.5 mg p.o. b.i.d. 5. Aspirin 81 mg daily. 6. Ticagrelor 90 mg b.i.d. 7. K-Dur/potassium at 20 mEq b.i.d. PHYSICAL EXAMINATION: VITAL SIGNS: Heart rate 68, blood pressure 94/52. Second set of vitals that took place about 15-20 minutes later with heart rate 78, blood pressure 92/55. GENERAL: He is alert and conversational. However, he becomes very fatigued and short of breath when he tried to carry on a long conversation. HEENT: Show EOMI PERRL. Oropharynx benign. There is no erythema or exudate. NECK: JVP is approximately 9 cm with positive hepatojugular reflux. LUNGS: Good air movement bilateral upper lung jacobs and slight crackles at the bases higher on the left; however, this seemed to be a bit more diminished in comparison to yesterday. HEART: Regular rate and rhythm, S1, S2, very, very soft holosystolic murmur. It does sometimes appear only at the lying position about lateral to the apex. His PMI is inferiorly and laterally displaced about the 6th intercostal space at the mid axillary line. There are no gallops, no rubs. ABDOMEN: Soft, nontender. Positive bowel sounds. EXTREMITIES: Lower extremities are without edema. His feet are a little cooler today, but there is a positive dorsalis pedis pulses bilaterally. His 24 hours net -725 mL. His sodium remains low at 131. His BNP has increased slightly from 662 up to 739. ASSESSMENT: A 64-year-old gentleman likely resides in [place] Heart Association stage D and [place] Heart Association class 3B heart failure with reduced ejection fraction. This is caused by recent ST elevation MT. Greater than 24 hours of delay from onset of MT to revascularization, appearance of a deep Q-wave at presentation, and experiencing difficulties post revascularization, suggest that his heart will not be able to return to normal. Currently, even minimal activities such as sitting and talking, it is quite a bit of strain on him. This illustrates his severe low cardiac output reserves today. At this point, with [facility] apparently accepting him and willing to do definitive therapy, perhaps this will be the best long-term option. With LVAD, he can remain well for greater than six months that would qualify him for heart transplant in the future. RECOMMENDATIONS: 1. Increase dobutamine back to 4 mcg/kg per minute to provide him a little bit more room for transport, may consider go up to 5 mcg/kg per minute. 2. Keep all other cardiac medications at the current dosages. He needs current level of stability for air transport. 3. We will continue to be in stay in contact with [facility], currently some of the ICU bed available, the patient should leave at 8:45 or 10 o[facility] 4. The potential progression events are: A: The patient transported to [facility] for definitive therapy. B: LVAD implantation followed by 30-day rehab, in totality they would take between 6-8 weeks. C. The patient returns to [place], [place] for six months. D. We will need to work with him in [facility] to maintain his LVAD until he becomes heart transplant eligible. E. Once he becomes transplant eligible, it is up to him to which transplant program that he choose. He can return to [facility], if he has sufficient insurance he can go to his transplant center of choice. If he chooses [facility], they will not call him back until he is high enough on the transplant list. [facility] will also provide housing for his . It has been a pleasure taking care of Mr. Amador. I hope that the entire transfer process and LVAD implantation will be successful. It has been an interesting patient and thank you for this consultation. Please call me if you have any questions. Job ID: [id number] [id number]
--- NOTE | 2019-06-09 10:47 | DIS ---
DATE OF ADMISSION: 05/30/2019 DATE OF DISCHARGE: 06/09/2019 ADMITTING DIAGNOSES: Acute anterior myocardial infarction, hypercholesterolemia, hypertension, as well as tobacco abuse and alcohol use. DISCHARGE DIAGNOSES: Acute anterior myocardial infarction, hypercholesterolemia, hypertension, as well as tobacco abuse and alcohol use. Also include severe ischemic cardiomyopathy with status post large anterior myocardial infarction, ejection fraction less than 20% to 25%, who has been dependent on inotropes. Unable to titrate the inotropes due to decrease in blood pressure. One episode of nonsustained ventricular tachycardia which occurred two days ago. This will be a transfer discharge. His present medications include dobutamine, which has been tapered down to 3 mcg/kg per minute. The blood pressure still remains stable in the low 90s to 100. His other medications include subcu Lovenox for DVT prophylaxis 30 mg b.i.d. this is subcu. He is on Lipitor 40 mg daily, Brilinta 90 mg b.i.d., aspirin 81 mg a day, Proscar 5 mg a day, potassium 20 mEq b.i.d. He is also on Bumex 0.5 mg b.i.d. ALLERGIES: NONE. PROCEDURE IN HOSPITAL: Included acute emergent angioplasty and stent placement to the left anterior descending artery as well as intra-aortic balloon placement. HOSPITAL COURSE: This very unfortunate 64-year-old gentleman presented to the emergency room, suffered an acute anterior myocardial infarction. He was taken emergently to the cardiac cath lab radiological technologist, where he underwent the procedure with angioplasty and stent placement to the left anterior descending artery, also had a thrombectomy using aspiration catheter of the thrombus in the left anterior descending artery and then angioplasty and stent placement, subsequently followed. He had significant, at the end of the procedure, decrease in blood pressure, hypertension, and bradycardia which required intra-aortic balloon placement. Eventually, he was tapered off the balloon. It was removed. He was placed on Levophed as well as dobutamine. Eventually, we were able to titrate off the dobutamine. I would taper off the Levophed. He then was continued on the dobutamine for increased cardiac output. He has remained relatively stable. He did have one episode of chest discomfort yesterday, which he believes was actually regurgitation, but was somewhat similar to what he was suffering before he came to the hospital. He actually was having chest pain for several days prior to presenting to the hospital and most likely he was suffering an anterior myocardial infarction throughout that time. He was implanted with a 3.5 x 24 mm non-drug coated stent which was dilated up to only 3.4 mm to heavy calcifications in the left anterior descending artery. Also at the time of the cardiac catheterization, the right coronary artery was noted to have a 50% mid stenosis. The left circumflex was free of any significant flow limiting disease. He underwent an echocardiogram which showed ejection fraction of 20% to 25%. The anterior wall remains akinetic as well as the septum. He did have an EKG today which showed evidence of an anterior myocardial infarction with Q-waves in V1 through V3, but still continues to have R-waves in V4 through V6. He had no other ischemic changes. He has remained relatively stable, but we have been unable to completely titrate him off the inotropes. Two days ago, we attempted to start him on Entresto. He had been on low-dose of Coreg, but blood pressure then plummeted to the 70s and 80s after being given one dose of Entresto and we then stopped his prostate medications. He had been on two different medications previously Flomax as well as Proscar. The Proscar continues, but he is no longer taking Flomax, after couple of days of holding, he had been also given diuretics. He diuresed very well despite having history of prostate hypertrophy, but at that time had a Oconnor catheter placed. The Oconnor catheter eventually been removed. He continued just to urinate relatively well, but most likely he was over diuresed when he was started on the Entresto as well as an additional prostate medicine was given. The blood pressure did not suffer two days ago. On Wednesday, the blood pressure was significantly low in the 70s and 80s, but then recovered after he was given some fluid boluses and the Proscar and prostate medicines were then removed. He was again started back on the Proscar. He then required having the dobutamine which at that time on early Wednesday morning was down to 2.5 mcg/kg per minute, required upping the dose back to 5 mcg/kg per minute. Over the next couple of days, he has continued to stabilize a little bit more. We were able to now titrate him down to 3 mcg/kg per minute, but unable to completely remove the dobutamine from his regimen. Today, he is feeling better. He has no significant shortness of breath. He has been able to ambulate yesterday. He has not ambulated yet today. He is waiting for PICC line placement, but otherwise has remained relatively stable. LABORATORY DATA: Shows a peak troponin I of 249. The troponin I today was 1.5 when the patient arrived. Prior to the angioplasty and stent placement, troponin I was 34. His BNP had gotten as low yesterday as 487, but today is back up to 662. This may be some reflection of the Entresto that he was given I believe on the or . His renal function has also remained stable. His sodium today was 131, potassium 4.1, chloride was 100, bicarb was 22, BUN was 13 with a creatinine of 0.84, blood sugar was 99, calcium was 8.5, hemoglobin was 9.8 with hematocrit 27.8, WBC of 7.9, platelet count is 312,000. His last vital signs today showed blood pressure of 119/74, heart rate was in the 70s. His blood pressure today has anywhere between the 90s to one teens. Mean arterial pressure is anywhere between 67 to 89, respiratory rate is around 20 to 26 per minute. At this time, he is still remains very comfortable and is awaiting the PICC line placement and for further transport to [place] to the [facility] for evaluation of LVAD and most likely will need to undergo possible transplant in the future. Job ID: [id number]
== END 2019-06-09 10:14 | DRG 270 ==
LOC: ERS 08:41 → CCU 10:43 → IMCU/EMU 06-04 10:17
PROVIDERS: ADMIT Internal Medicine Cardiovascular Disease; ATTEND Internal Medicine Cardiovascular Disease
PROC: 5A02210 Assistance with Cardiac Output using Balloon Pump, Continuous (ICD-10-PCS; principal; 2019-05-30)
PROC: 02703DZ Dilation of Coronary Artery, One Artery with Intraluminal Device, Percutaneous Approach (ICD-10-PCS; 2019-05-30)
PROC: 02C03ZZ Extirpation of Matter from Coronary Artery, One Artery, Percutaneous Approach (ICD-10-PCS; 2019-05-30)
PROC: B2111ZZ Fluoroscopy of Multiple Coronary Arteries using Low Osmolar Contrast (ICD-10-PCS; 2019-05-30)
PROC: 3E033XZ Introduction of Vasopressor into Peripheral Vein, Percutaneous Approach (ICD-10-PCS; 2019-05-30)
PROC: 3E03317 Introduction of Other Thrombolytic into Peripheral Vein, Percutaneous Approach (ICD-10-PCS; 2019-05-30)
PROC: 3E033PZ Introduction of Platelet Inhibitor into Peripheral Vein, Percutaneous Approach (ICD-10-PCS; 2019-05-30)
PROC: 06HY33Z Insertion of Infusion Device into Lower Vein, Percutaneous Approach (ICD-10-PCS; 2019-05-30)
PROC: 3E02340 Introduction of Influenza Vaccine into Muscle, Percutaneous Approach (ICD-10-PCS; 2019-05-30)
DX: I21.09 ST elevation (STEMI) myocardial infarction involving other coronary artery of anterior wall (principal); I50.23 Acute on chronic systolic (congestive) heart failure; R57.0 Cardiogenic shock; I47.2 Ventricular tachycardia; Z23 Encounter for immunization; I25.10 Atherosclerotic heart disease of native coronary artery without angina pectoris; I11.0 Hypertensive heart disease with heart failure; E78.5 Hyperlipidemia, unspecified; Z96.611 Presence of right artificial shoulder joint; I25.5 Ischemic cardiomyopathy; F17.200 Nicotine dependence, unspecified, uncomplicated; F10.10 Alcohol abuse, uncomplicated; N40.1 Benign prostatic hyperplasia with lower urinary tract symptoms; R33.8 Other retention of urine; E78.00 Pure hypercholesterolemia, unspecified; I95.81 Postprocedural hypotension; Z79.899 Other long term (current) drug therapy; Z79.82 Long term (current) use of aspirin; Z91.19 Patient's noncompliance with other medical treatment and regimen; I25.2 Old myocardial infarction
CPT/HCPCS: 33967; 36415; 36569; 71045; 76936; 80048; 80053; 80061; 80076; 82330; 82550; 82553; 83735; 83880; 84484; 85025; 85027; 85347; 86850; 86900; 86901; 90471; 90686; 92928; 92973; 92977; 93005; 93010; 93306; 93454; 93798; C1725; C1751; C1757; C1769; C1876; C1887; G0008; J0171; J1250; J1265; J1644; J1650; J1940; J2001; J2270; J2405; J3246; J3260; J7050; J7070; P9047; Q0162; Q9967

== ENCOUNTER 2023-06-30 15:48 | Inpatient (IN) | payer MEDICARE, OTHER ==
[~2023-06-30 15:48] MED LIST changes: -Gadobenate Dimeglumine 529 MG/1 ML (20ML VIAL) ONE; +Iopamidol-370 76% 500 ML MDV (1 ML CHARGE) ONE
[2023-06-30 16:38] LABS: #Basophils 0.1 thou/uL (0.0-0.2); #Eosinphils 0.1 thou/uL (0.0-0.7); #Monocytes 0.8 thou/uL (0.11-0.59); #Neutrophils 5.3 thou/uL (1.40-6.50); %Basophils 0.8 % (0.0-1.0); %Eosinophils 1.5 % (0.0-10.0); %Lymphocytes 34.1 % (21.0-51.0); %Monocytes 7.8 % (0.0-10.0); %Neutrophils 55.4 % (42.0-75.0); Hematocrit 45.2 % (42.0-52.0); Hemoglobin 15.6 g/dL (14.0-18.0); Mean Corpuscular HGB CONC 34.5 g/dL (32.0-36.0); Mean Corpuscular Hemoglobin 32.5 pg (27.0-31.0); Mean Corpuscular Volume 94.2 fl (78.0-98.0); Mean Platelet Volume 9.8 fL (7.4-10.4); Platelet Count 208 10x3/uL (130-400); RBC Distribution Width 13.9 % (11.5-14.5); White Blood Cell (WBC) Count 9.6 10x3/uL (4.8-10.8)
[2023-06-30] MEDS ORDERED: Aspirin Chewable 81 MG TAB ONE (17:01)
[2023-06-30 17:09] LABS: ALT (SGPT) 14 U/L (8-55); AST (SGOT) 16 U/L (5-34); Albumin 4.4 g/dL (3.4-4.8); Alkaline Phosphatase 84 U/L (40-110); Anion Gap 14 mmol/L (10-20); BUN (Urea Nitrogen) 15 mg/dL (8.4-25.7); Calc. Creatinine Clearance 0 mL/min (70-130); Calcium 9.1 mg/dL (7.8-10.44); Carbon Dioxide 23 mmol/L (23-31); Chloride 106 mmol/L (98-107); Estimated GFR 98; Globulin 2.8 g/dL (2.4-3.5); Glucose 85 mg/dL (80-115); Potassium 3.9 mmol/L (3.5-5.1); Protein, Total 7.2 g/dL (5.8-8.1); Sodium 139 mmol/L (136-145)
[2023-06-30 17:10] LABS: Troponin I Less than 0.010 ng/mL (< 0.028)
[2023-06-30 17:17] LABS: Bilirubin, Total 0.5 mg/dL (0.2-1.2)
[2023-06-30 18:06] LABS: Lipase 31 U/L (8-78)
[2023-06-30 20:01] LABS: SARS-CoV-2 NAA Rapid Test Not Detected (NotDetected)
[2023-06-30] MEDS ORDERED: Morphine 4 MG/ML VIAL ONE (20:33)
== END 2023-07-01 04:18 | disposition left against medical advice (07) | DRG 303 ==
LOC: ERS 15:48 → ERHOLD 21:13
PROVIDERS: ADMIT Internal Medicine; ATTEND Internal Medicine
DX: I25.110 Atherosclerotic heart disease of native coronary artery with unstable angina pectoris (principal); Z88.8 Allergy status to other drugs, medicaments and biological substances; Z79.899 Other long term (current) drug therapy; Z79.82 Long term (current) use of aspirin; I25.2 Old myocardial infarction; Z95.5 Presence of coronary angioplasty implant and graft; E78.5 Hyperlipidemia, unspecified; Z98.890 Other specified postprocedural states; F17.210 Nicotine dependence, cigarettes, uncomplicated; Z11.52 Encounter for screening for COVID-19
CPT/HCPCS: 36415; 71045; 71275; 80053; 83690; 83735; 83880; 84484; 85025; 85379; 93005; J2270; Q9967

== ENCOUNTER 2023-09-24 13:11 | Outpatient (CLI) | payer OTHER | END 2023-09-24 13:12 | disposition home or self-care (01) | LOC: CT 13:11 → BICCT 13:12 | PROVIDERS: ATTEND Internal Medicine | DX: Z12.2 Encounter for screening for malignant neoplasm of respiratory organs (principal); I25.10 Atherosclerotic heart disease of native coronary artery without angina pectoris; R91.1 Solitary pulmonary nodule; Z87.891 Personal history of nicotine dependence | CPT/HCPCS: 71271 ==

== ENCOUNTER 2024-01-04 14:14 | Outpatient (CLI) | payer OTHER | END 2024-01-04 14:15 | disposition home or self-care (01) | LOC: BICCT 14:14 | PROVIDERS: ATTEND Internal Medicine | DX: Z12.2 Encounter for screening for malignant neoplasm of respiratory organs (principal); Z87.891 Personal history of nicotine dependence | CPT/HCPCS: 71271 ==